=== PATIENT | male | born 1935 | race Caucasian/White ===

== ENCOUNTER 2017-06-04 19:58 | Inpatient (IN) ==
--- NOTE | 2017-06-04 20:56 | Emergency Department Note ---
Disposition Clinical Impression: Rhabdomyolysis Disposition: Admitted As Inpatient Condition: Fair Time of Disposition: 22:30 Fall HPI - General Chief Complaint: ED Fall Stated Complaint: fall Time Seen by Provider: 06/04/17 20:45 Source: patient Nursing Notes Reviewed: Yes Vital Signs Reviewed: Yes - History of Present Illness HPI Narrative: Mr. Coombs was found on the floor of his house by his son yahaira. Some unknown how long he was there Mr. Coombs seems to think it was several days but his son deduced that it was probably about 7 hours. Mr. Coombs fell back and hit the back of his head. He does have some neck pain it is only slightly worse than usual. He did have a C2 fracture in the past. He also has an abrasion on his shoulder. He does not seem to have full recollection of all events but does not seem to think that he lost consciousness. He denies any chest pain palpitations abdominal pain currently or prior to the fall. No fever no chills no dizziness no lightheadedness. He has been eating normally prior to the fall lives at home alone. He tells me that he is a . Past medical history November he had a aortic valve replacement at [facility] in [place] and has been doing well since then. Before that he had issues with congestive heart failure. He is currently on Eliquis for anticoagulation per his daughter's report. Pt Subjective Complaint: fall - Related Data Home Medications Medication Instructions Recorded Confirmed Atorvastatin [Lipitor] 20 mg PO HS 09/16/15 06/05/17 Ferrous Sulfate [Iron] 325 mg PO DAILY 09/16/15 06/05/17 Ranolazine [Ranexa] 500 mg PO BID 09/16/15 06/05/17 Apixaban [Eliquis] 5 mg PO BID 06/05/17 06/05/17 Carvedilol [Coreg] 3.125 mg PO ONCE 06/05/17 06/05/17 Furosemide [Lasix] 40 mg PO DAILY 06/05/17 06/05/17 Lisinopril [Zestril] 3.125 mg PO BID 06/05/17 06/05/17 Mirtazapine [Remeron] 15 mg PO HS 06/05/17 06/05/17 Previous Rx's Medication Instructions Recorded Acetaminophen [Tylenol] 975 mg PO Q8HR PRN #0 tablet 10/11/15 Allergies Allergy/AdvReac Type Severity Reaction Status Date / Time Penicillins Allergy See Verified 09/23/15 13:23 Comments hydrocodone AdvReac Nausea Verified 09/23/15 22:04 Eyes: Denies: vision change ENT ED: Denies: throat pain Cardiovascular: Denies: chest pain Gastrointestinal: Denies: abdominal pain, nausea, vomiting Musculoskeletal: Reports: neck pain. Denies: arthralgia Integumentary: Reports: abrasion Neurological: Denies: headache Hematological/Lymphatic: Denies: easy bleeding, easy bruising Fall PMH - Past Medical History Medical history: Reports: coronary artery disease, hyperlipidemia, hypertension , valvular heart disease, other Surgical history: Reports: herniorrhaphy, hip replacement (Left hip replacement 1994, revised 1999), pacemaker/AICD Psychiatric history: Reports: no psych history - Social History Smoking Status: Former smoker Alcohol use: Reports: none Drug use: Reports: none Physical Exam - General Limitations: age General appearance: alert, in no apparent distress - Head Head exam: other (Occiput soft tissue swelling in an area approximately 2 x 2 centimeters mild pain to palpation no crepitus no step-off. Skin is intact.) - Eye Eye exam: Present: normal appearance, PERRL, EOMI. Absent: periorbital swelling , periorbital tenderness - ENT ENT exam: normal oropharynx, TM's normal bilaterally, other (Negative Bailey sign negative raccoon eyes) - Neck Neck exam: Present: full ROM, tenderness (Mild pain to palpation cervical vertebrae no crepitus no step off no point tenderness.) - Chest Chest inspection: Present: other (Intact pacer device left upper chest. No pain to palpation) - Respiratory Respiratory exam: Present: normal lung sounds bilaterally. Absent: respiratory distress, wheezes, stridor - Cardiovascular Cardiovascular exam: Present: normal rhythm, tachycardia, normal heart sounds. Absent: systolic murmur, diastolic murmur - Abdominal Exam Abdominal exam: Present: soft, Non-Tender, other (No abdominal ecchymoses) - Back Exam Back exam: Present: normal inspection, other (No flank ecchymoses) - Neurological Exam Neurological exam: Present: alert, oriented X3, CN II-XII intact. Absent: motor sensory deficit - Psychiatric Psychiatric exam: Present: normal affect, normal mood - Skin Skin exam: Present: other (HemoStatic abrasion posterior left shoulder area approximately 4 cm) Course Vital Signs Temperature 97.8 F 06/04/17 20:21 Pulse Rate 110 06/04/17 20:21 Respiratory Rate 20 06/04/17 20:21 Blood Pressure 110/80 06/04/17 20:21 O2 Sat by Pulse Oximetry 94 06/04/17 20:21 Temperature 97.8 F 06/04/17 20:21 Pulse Rate 124 06/05/17 01:43 Respiratory Rate 20 06/05/17 01:43 Blood Pressure 117/71 06/05/17 01:43 O2 Sat by Pulse Oximetry 93 06/05/17 01:43 Oxygen Delivery Oxygen Delivery Room Air Fall - MDM Narrative Medical decision making narrative: Status post fall. There does not appear to be any serious neurologic or orthopedic sequela from this event. Per his daughter he does seem to be somewhat more confused. He probably has a concussion. Rhabdomyolysis. Probably from laying for a prolonged period of time. We will aggressively hydrate him keeping in mind his history of congestive heart failure. Lungs are currently clear and remained so when his second liter finished. We will begin a third as his urine is still quite dark. Tachycardia. Possibly secondary dehydration from prolonged immobilization or rebound for missing his dose of beta jorge today. We will doses Corag and observe this as we hydrate him. Leukocytosis. No obvious focus of fever. Chest and urine not indicative of infectious process. Blood culture pending. I spoke with Mr. Cortes's family doctor who admits here to [facility]. I presented the case. He accepted admission. Mr. Cortes is awake alert in no visible distress respiratory or otherwise just prior to transfer to the floor. - Medical Records Medical records reviewed: Yes I reviewed the patient's medical records. - Lab Data Lab results reviewed: Yes I reviewed the patient's lab results. Result diagrams: 06/04/17 21:15 06/04/17 21:15 Lab Results 06/04/17 06/04/17 06/04/17 Range/Units 21:15 21:15 21:15 WBC 19.5 H (4.3-11.1) K/mcL RBC 4.53 (4.19-5.50) M/mcL Hgb 15.0 (12.9-16.9) g/dL Hct 45.0 (37.5-50.1) % MCV 99.3 (83.0-100.0) fL MCH 33.1 (28.0-33.3) pg MCHC 33.3 (31.6-35.5) g/dL RDW 14.3 (11.5-14.5) % Plt Count 169 (140-400) K/mcL MPV 12.0 (9.4-12.4) fL Immature Gran % 0.6 (0-4) % Seg Neutrophils % 87.6 % Lymphocytes % 5.5 % Monocytes % 6.2 % Eosinophils % 0.0 % Basophils % 0.1 % Neutrophils # 17.1 H (1.6-8.9) K/mcL Lymphocytes # 1.1 (0.6-4.6) K/mcL Monocytes # 1.2 (0.0-1.3) K/mcL Eosinophils # 0.0 (0.0-0.6) K/mcL Basophils # 0.0 (0.0-0.2) K/mcL PT 15.6 H (9.4-12.1) Seconds INR 1.4 APTT 36.2 H (26.0-36.0) Seconds Sodium 135 L (136-145) mEq/L Potassium 5.6 H (3.5-5.1) mEq/L Chloride 99 (98-107) mEq/L Carbon Dioxide 26 (23-29) mEq/L BUN 42 H (8-23) mg/dL Creatinine 1.68 H (0.70-1.30) mg/dL Est GFR ( Amer) 48 L (> 60) Est GFR (Non-Af Amer) 39 L (> 60) BUN/Creatinine Ratio 25 (6-26) Glucose 178 H (70-105) mg/dL Calculated Osmolality 295 (280-300) Lactic Acid (0.5-2.2) mmol/L Calcium 9.7 (8.6-10.3) mg/dL Total Bilirubin 0.9 (0.3-1.0) mg/dL AST 103 H (13-39) Units/L ALT 36 (7-52) Units/L Alkaline Phosphatase 102 (34-104) Units/L Creatine Kinase 4856 H (30-223) Units/L Serum Total Protein 7.2 (6.4-8.9) g/dL Albumin 3.8 (3.5-5.7) g/dL Globulin 3.4 (2.4-3.5) g/dL Albumin/Globulin Ratio 1.1 (1.1-2.2) Urine Color (Yellow) Urine Clarity (Clear) Urine pH (5.0-8.0) pH Units Ur Specific [place] (1.010-1.025) Urine Protein (Neg-Trace) mg/dL Urine Glucose (UA) (Normal) mg/dL Urine Ketones (Negative) mg/dL Urine Blood (Negative) Urine Nitrite (Negative) Urine Bilirubin (Negative) Urine Urobilinogen (Normal) mg/dL Ur Leukocyte Esterase (Negative) Urine Microscopic RBC (0-3) per hpf Ur Culture Indicated? (NO) 06/04/17 06/05/17 Range/Units 21:45 00:00 WBC (4.3-11.1) K/mcL RBC (4.19-5.50) M/mcL Hgb (12.9-16.9) g/dL Hct (37.5-50.1) % MCV (83.0-100.0) fL MCH (28.0-33.3) pg MCHC (31.6-35.5) g/dL RDW (11.5-14.5) % Plt Count (140-400) K/mcL MPV (9.4-12.4) fL Immature Gran % (0-4) % Seg Neutrophils % % Lymphocytes % % Monocytes % % Eosinophils % % Basophils % % Neutrophils # (1.6-8.9) K/mcL Lymphocytes # (0.6-4.6) K/mcL Monocytes # (0.0-1.3) K/mcL Eosinophils # (0.0-0.6) K/mcL Basophils # (0.0-0.2) K/mcL PT (9.4-12.1) Seconds INR APTT (26.0-36.0) Seconds Sodium (136-145) mEq/L Potassium (3.5-5.1) mEq/L Chloride (98-107) mEq/L Carbon Dioxide (23-29) mEq/L BUN (8-23) mg/dL Creatinine (0.70-1.30) mg/dL Est GFR ( Amer) (> 60) Est GFR (Non-Af Amer) (> 60) BUN/Creatinine Ratio (6-26) Glucose (70-105) mg/dL Calculated Osmolality (280-300) Lactic Acid 3.6 H (0.5-2.2) mmol/L Calcium (8.6-10.3) mg/dL Total Bilirubin (0.3-1.0) mg/dL AST (13-39) Units/L ALT (7-52) Units/L Alkaline Phosphatase (34-104) Units/L Creatine Kinase (30-223) Units/L Serum Total Protein (6.4-8.9) g/dL Albumin (3.5-5.7) g/dL Globulin (2.4-3.5) g/dL Albumin/Globulin Ratio (1.1-2.2) Urine Color Dark Yellow (Yellow) Urine Clarity Slightly Cloudy A (Clear) Urine pH 5.0 (5.0-8.0) pH Units Ur Specific [place] 1.025 (1.010-1.025) Urine Protein 100 H (Neg-Trace) mg/dL Urine Glucose (UA) Normal (Normal) mg/dL Urine Ketones Trace H (Negative) mg/dL Urine Blood Small H (Negative) Urine Nitrite Negative (Negative) Urine Bilirubin Small H (Negative) Urine Urobilinogen Normal (Normal) mg/dL Ur Leukocyte Esterase Negative (Negative) Urine Microscopic RBC 3-5 H (0-3) per hpf Ur Culture Indicated? NO (NO) - Radiology Data Radiology results reviewed: Yes I reviewed the patient's radiology results. - EKG Data EKG attestation: Yes I reviewed and interpreted this EKG. EKG results narrative: EKG as interpreted by me ventricular pacer 122 bpm. Left axis deviation. T wave inversion on aVL. S wave in V2 of increased amplitude but criteria for LVH is not strictly met. No significant change from December 2016.
[2017-06-04 21:21] LABS: Basophils % 0.1 %; Immature Granulocytes % 0.6 % (0-4); Lymphocytes # 1.1 K/mcL (0.6-4.6); Lymphocytes % 5.5 %; Mean Corpuscular HGB Conc 33.3 g/dL (31.6-35.5); Mean Corpuscular Hemoglobin 33.1 pg (28.0-33.3); Mean Corpuscular Volume 99.3 fL (83.0-100.0); Monocytes # 1.2 K/mcL (0.0-1.3); Monocytes % 6.2 %; Neutrophils # 17.1 K/mcL (1.6-8.9); Platelet Count 169 K/mcL (140-400); Red Blood Count 4.53 M/mcL (4.19-5.50); Red Cell Distribution Width 14.3 % (11.5-14.5); Segmented Neutrophils % 87.6 %
[2017-06-04 21:24] LABS: INR 1.4; Prothrombin Time 15.6 Seconds (9.4-12.1)
[2017-06-04 21:26] LABS: Activated Partial Thrombo Time 36.2 Seconds (26.0-36.0)
[2017-06-04 22:14] LABS: Albumin 3.8 g/dL (3.5-5.7); Albumin/Globulin Ratio 1.1 (1.1-2.2); Bilirubin,Total 0.9 mg/dL (0.3-1.0); Calcium 9.7 mg/dL (8.6-10.3); Globulin 3.4 g/dL (2.4-3.5); Potassium 5.6 mEq/L (3.5-5.1); Total Protein 7.2 g/dL (6.4-8.9)
[2017-06-04] MEDS ORDERED: 0.9 % Sodium Chloride 1,000 ML IVC ONE (22:19)
[2017-06-05 00:11] LABS: Bilirubin,Urine Small (Negative); Blood,Urine Small (Negative); Clarity,Urine Slightly Cloudy (Clear); Glucose,Urine (UA) Normal (Normal); Ketones,Urine Trace mg/dL (Negative); Leukocyte Esterase,Urine Negative (Negative); Nitrite,Urine Negative (Negative); Protein,Urine 100 mg/dL (Neg-Trace); Specific Gravity,Urine 1.025 (1.010-1.025); Urobilinogen,Urine Normal (Normal)
[2017-06-05 00:17] LABS: Color,Urine Dark Yellow (Yellow)
[2017-06-05] MEDS ORDERED: 0.9 % Sodium Chloride 1,000 ML IVC ONE ×3 (00:49→02:04)
[2017-06-05] MEDS ORDERED: Naloxone 0.4 MG/ML INJ IVP PRN (01:59)
[2017-06-05] MEDS ORDERED: 0.9 % Sodium Chloride 1,000 ML IVC SCH (02:00)
[2017-06-05] MEDS: 0.9 % Sodium Chloride 1,000 ML IVC SCH ×3 (04:02→23:57)
[2017-06-05 07:11] LABS: Hematocrit 33.9 % (37.5-50.1); Immature Granulocytes % 0.5 % (0-4); Lymphocytes # 1.1 K/mcL (0.6-4.6); Lymphocytes % 10.6 %; Mean Corpuscular HGB Conc 33.6 g/dL (31.6-35.5); Mean Corpuscular Hemoglobin 33.2 pg (28.0-33.3); Mean Corpuscular Volume 98.8 fL (83.0-100.0); Mean Platelet Volume 11.3 fL (9.4-12.4); Monocytes # 0.9 K/mcL (0.0-1.3); Monocytes % 9.2 %; Neutrophils # 8.2 K/mcL (1.6-8.9); Platelet Count 125 K/mcL (140-400); Red Blood Count 3.43 M/mcL (4.19-5.50); Red Cell Distribution Width 14.4 % (11.5-14.5); Segmented Neutrophils % 79.7 %
[2017-06-05 07:12] LABS: Hemoglobin 11.4 g/dL (12.9-16.9)
[2017-06-05 08:29] LABS: Calcium 8.4 mg/dL (8.6-10.3); Magnesium 2.2 mg/dL (1.6-2.6)
[2017-06-05] MEDS: Apixaban 5 MG TABLET PO SCH ×2 (09:03→22:39)
[2017-06-05] MEDS: Ranolazine 500 MG TAB.ER.12H PO SCH ×2 (09:03→22:39)
--- NOTE | 2017-06-05 09:39 | Internal Med History&Physical ---
Date of Encounter: 06/06/17 Time of Encounter: 09:38 Assessment and Plan (1) Rhabdomyolysis Current visit: Yes Status: Acute Patient has rhabdomyolysis with elevated CPK from having been on the floor after a fall for 7 hours or more. His creatinine was elevated, he has been placed on IV fluids and his creatinine is improved now. We still need to continue the IV fluids gently because of his prior history of aortic stenosis/ TAVR and cardiomyopathy. We cannot flood him with too much at one time. Continue hydrating gently and try to avoid congestive heart failure at the same time. We will have follow-up CPK and creatinine. I anticipate he will need to be here 3-4 days because of his multiple problems Qualifiers: Rhabdomyolysis type: traumatic Encounter type: initial encounter Qualified Code(s): T79.6XXA - Traumatic ischemia of muscle, initial encounter (2) Acute kidney injury Current visit: Yes Status: Acute Acute kidney injury with elevated creatinine 1.6. Improved after hydration. We will need to continue following because of the rhabdomyolysis. Continue hydration gently, avoiding congestive heart failure. (3) Concussion Current visit: Yes Status: Acute It appears that he may have a concussion. Even though he knows the day, date and year and his surroundings, he thought he fell at the office and was there for 7 days before being found by his son Jose. Actually was more likely up to 7 hours or so at home. Then he told the story that he was making a sandwich when he fell backwards. His CT scan was negative for hemorrhage. He does have some mild cognitive decline because of age, previous falling episodes and concussions and we will continue to monitor. Qualifiers: Encounter type: initial encounter Loss of consciousness presence/duration: without LOC Qualified Code(s): S06.0X0A - Concussion without loss of consciousness, initial encounter (4) Hx of CABG Current visit: No Status: Chronic History of previous CABG and aortic stenosis. He has a tendency for CHF. We need to hydrate him slowly. Currently no signs of CHF. We will add back his ARB that was not started in the ER. Currently not requiring Lasix (5) Frequent falls Current visit: Yes Status: Acute She has a history of frequent falling, this time he was on the floor for many hours. No obvious chest pain, dyspnea, neurological event leading to this. Likely generalized lower extremity weakness, loss of bowels particular when he steps backwards, etc. He uses a Rollator at home. Blood cultures were obtained to help rule out occult infection. Urine did not look infected. Obvious source of infection leading to weakness. He has had general decline and is failed maintaining good functional capacity despite home physical therapy. (6) Abrasion hip/leg Current visit: Yes Status: Acute Qualifiers: Encounter type: initial encounter Laterality: left Qualified Code(s): S80.812A - Abrasion, left lower leg, initial encounter (7) Status post transcatheter aortic valve replacement Current visit: Yes Status: Acute (8) Pacemaker Current visit: Yes Status: Acute Internal Medicine - H&P: HPI Chief complaint: I fell down when I stepped backwards and could not get back up Admitted From: Emergency Dept Plans for Post Hospital Care: Home History of present illness: Mr. Cortes is a 81 year old male with known history of CAD and CABG 2004, pacemaker for third-degree heart block, her carotid artery disease, s/p TAVR, and prior history of falling episode with multiple fractures was found at home on the floor. His son found him and reportedly patient could have been there for 7 hours or more. Patient was confused and thought he had been at the office and was down for 7 days. When patient was reoriented he then remembered that he had been in the kitchen making breakfast and stepped backwards and fell down and could not get up. Later information from daughter gives the possibility the patient may been on the floor for about a day and a half or more. In any case, he was unhelpful to get off the floor. He denied any syncope prior to falling, chest pains, dyspnea, unilateral focal deficit that was new. As seen in the hospital he denies a cardiac respiratory symptoms. Complains of left shoulder pain, thoracic spine pain, and generalized weakness. Patient states he has been compliant with his medications, but on house calls I have found inconsistencies with his medication regimens. He has had some other falls at home that did not require visit to the emergency room. He denies any signs of a broken bone, he does have an abrasion in the left lateral thigh area. He really cannot offer much more history than that. He is somewhat inconsistent and confused with details and historical information. Past Med Surg Social Fam HX - Past Medical History Medical history: atrial fibrillation (In past has had atrial fibrillation, now has ventricular pacemaker.), cardiomyopathy ( History of ischemic cardiomyopathy.), CHF (Remote history of CHF), coronary artery disease, hyperlipidemia, hypertension, valvular heart disease (Status post TAVR), other ( History of multiple fractures including left patella, right femur, left clavicle , C2, pelvic fractures) Psychiatric history: no psych history - Past Surgical History Surgical History: coronary bypass (CABG) (CABG 5 vessel 2004), herniorrhaphy ( Right inguinal hernia Dr. 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) Current living situation: Home - Independent Activity Level: Uses cane/walker Recent Out of Country Travel Within the Last 8 Weeks: No Exposure or Possible Exposure to Illness During Travel: No - Family History Mother Living Status: Hx Family Respiratory Disorders: Yes (Tuberculosis) Father Living Status: Hx Family Neuromuscular Disorders: Yes (CVA) Internal Medicine - H&P: Meds Atorvastatin [Lipitor] 20 mg PO HS 09/16/15 [History] Ferrous Sulfate [Iron] 325 mg PO DAILY 09/16/15 [History] Ranolazine [Ranexa] 500 mg PO BID 09/16/15 [History] Acetaminophen [Tylenol] 975 mg PO Q8HR PRN #0 tablet 10/11/15 [Rx] Apixaban [Eliquis] 5 mg PO BID 06/05/17 [History] Carvedilol [Coreg] 3.125 mg PO ONCE 06/05/17 [History] Furosemide [Lasix] 40 mg PO DAILY 06/05/17 [History] Mirtazapine [Remeron] 15 mg PO HS 06/05/17 [History] Magnesium Oxide [Magnesium] 400 mg PO DAILY 06/06/17 [History] Olmesartan Medoxomil [Olmesartan Medoxomil] 5 mg PO DAILY 06/06/17 [History] 3 Allergy/AdvReac Type Severity Reaction Status Date / Time Penicillins Allergy See Verified 09/23/15 13:23 Comments hydrocodone AdvReac Nausea Verified 09/23/15 22:04 - Constitutional Constitutional: falls, weakness, no fever(s), no night sweats - EENT Eyes: no change in vision, no loss of vision Ears: no ear pain Nose, mouth and throat: no epistaxis, no sinus pain, no sore throat - Cardiovascular Cardiovascular ROS IM: no chest pain, no claudication, no diaphoresis, no dyspnea, no dyspnea on exertion, no irregular heart rhythm, no lightheadedness, no palpitations, no syncope - Respiratory Respiratory: no cough, no dyspnea, no wheezing - Gastrointestinal Gastrointestinal: no abdominal pain, no coffee ground emesis, no constipation, no diarrhea, no hematemesis, no hematochezia, no melena, no vomiting - Genitourinary Genitourinary ROS male: no difficulty urinating, no dysuria, no hematuria, no urinary incontinence (Though staff reports he is incontinent at times) - Musculoskeletal Musculoskeletal ROS IM: as per HPI, back pain (Mid to lower thoracic spine tenderness.), muscle weakness (Complains of weakness particularly in his lower extremities.), no neck pain, no tingling - Integumentary Integumentary IM: as per HPI (Abrasion to left lateral thigh), no jaundice - Neurological Neurological ROS: disequilibrium (He uses a Rollator.), no confusion (Though staff reports he does get confused easily.), no focal weakness, no headache(s), no loss of vision, no paresthesias, no radicular pain, no tingling, no tremor(s) - Psychiatric Psychiatric: no auditory hallucinations, no behavioral changes, no confusion ( The staff thinks he is confused at times.), no hallucinations, no suicidal ideation, no visual hallucinations - Endocrine Endocrine IM: no polyphagia, no polyuria - Hematologic/Lymphatic Hematologic/Lymphatic: no lymphadenopathy - Constitutional Vitals: Temp Pulse Resp BP Pulse Ox 98.3 F 107 16 117/69 94 06/05/17 07:35 06/05/17 07:35 06/05/17 02:52 06/05/17 07:35 06/05/17 07:35 General appearance: Present: A&O X 3 (He knew the day, date, year and location. He thought that he fell though in the office instead of his house and that he was there for 7 days not 7 hours), pleasant, no acute distress. Absent: answers questions appropriately - Head Head exam: Present: atraumatic (No bruising or Bailey's sign), normal inspection - Eye Eye exam: Present: EOMI, PERRL. Absent: scleral icterus - ENT ENT exam: Present: TM's normal bilaterally - Neck Neck exam general surgery: Absent: full ROM (Appropriate range of motion for his age and previous fracture. Appears to be at baseline.), lymphadenopathy, tenderness Additional comments: No JVD - Expanded Neck Exam Neck exam: Absent: thyroid mass - Respiratory Respiratory exam: Present: CTAB. Absent: rales, rhonchi, wheezes - Cardiovascular Cardiovascular exam: Present: RRR, +S1, +S2, systolic murmur (2 to 3/6 systolic murmur heard best along the left sternal border.) - GI/Abdominal GI/Abdominal exam: Present: soft, no peritoneal signs. Absent: guarding, hepatomegaly, rebound, tenderness - Extremities Exam Extremities exam: Absent: calf tenderness, joint swelling, pedal edema Additional comments: Has an abrasion the left lateral thigh which is covered with a dressing. It measures 8-10 cm or so in diameter. Superficial without secondary infection. Has bruising on the right forearm uncomplicated. He has chronic abnormal deformity to the right distal clavicle. Slight decreased range of motion of left knee compare the right with previous patellar fracture. Cannot dorsiflex the left foot. No obvious long bone deformities noted. Moves all extremities appropriately well as tested in bed considering his condition. - Back Exam Additional comments: Patient has kyphosis as well as protrusion of some lower thoracic vertebrae. He has healed decubitus and skin discoloration along his thoracic spine without any open lesions. Mildly tender on palpation at approximately the eighth to 10th spinal processes. Does not appear to be localized to specific vertebrae on percussion. - Neurological Exam Neurological exam: Present: alert, CN II-XII intact, strengths equal and symetr throughout. Absent: altered, facial droop, speech deficit Additional comments: He is talkative and appears to be oriented. However, he thought that he fell in the office and was there for 7 days, not the house and having been there on the floor for about 7 hours. He seems fairly clear to recent and historical events on cursory social conversation. Did not do a full Mini-Mental status examination. He knew the date, day, month and year. He does not know his medications very well at all, but he never has. He is unclear to the events of his falling episode and timeframe. - Skin Skin exam: Present: abrasion (Left lateral thigh measuring 8-10 cm. Very superficial and covered with sterile dressing.) Internal Med - H&P Results - Labs CBC & Chem 7: 06/06/17 15:55 06/06/17 15:55 Labs: Short CBC 06/05/17 Range/Units 06:45 WBC 10.2 (4.3-11.1) K/mcL Hgb 11.4 L D (12.9-16.9) g/dL Hct 33.9 L (37.5-50.1) % Plt Count 125 L (140-400) K/mcL Neutrophils # 8.2 (1.6-8.9) K/mcL BMP 06/05/17 06:45 Sodium 140 Potassium 4.0 D Chloride 107 Carbon Dioxide 26 BUN 38 H Creatinine 1.46 H Glucose 108 H Calcium 8.4 L Labs have been reviewed. - Impressions ITS Impressions Chest X-Ray 06/05/17 02:05 IMPRESSION: No acute disease. D/ / Rolly Pierce MD / Rolly Pierce MD Interpreting Provider: Rolly Pierce MD - VTE Reasons for not Prescribing Prophylaxis: Not indicated-Anticoagulated or INR therapeutic
--- NOTE | 2017-06-05 20:12 | Electrocardiograph Report ---
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
[2017-06-05] MEDS: Mirtazapine 15 MG TABLET PO SCH (22:39)
[2017-06-06 05:47] LABS: Eosinophils # 0.1 K/mcL (0.0-0.6); Eosinophils % 1.6 %; Hematocrit 26.6 % (37.5-50.1); Immature Granulocytes % 0.5 % (0-4); Lymphocytes # 1.5 K/mcL (0.6-4.6); Lymphocytes % 24.7 %; Mean Corpuscular HGB Conc 32.7 g/dL (31.6-35.5); Mean Corpuscular Volume 100.8 fL (83.0-100.0); Mean Platelet Volume 11.9 fL (9.4-12.4); Monocytes # 0.7 K/mcL (0.0-1.3); Monocytes % 10.9 %; Neutrophils # 3.8 K/mcL (1.6-8.9); Red Blood Count 2.64 M/mcL (4.19-5.50); Red Cell Distribution Width 14.6 % (11.5-14.5); Segmented Neutrophils % 62.3 %
[2017-06-06 05:51] LABS: Platelet Count 86 K/mcL (140-400)
[2017-06-06 05:52] LABS: Hemoglobin 8.7 g/dL (12.9-16.9)
[2017-06-06 07:57] LABS: BUN/Creatinine Ratio 31 (6-26); Blood Urea Nitrogen 30 mg/dL (8-23); Carbon Dioxide 21 mEq/L (23-29); Chloride 116 mEq/L (98-107); Glucose 82 mg/dL (70-105); Osmolality,Calculated 299 (280-300); Potassium 2.5 mEq/L (3.5-5.1); Sodium 142 mEq/L (136-145); eGFR For African Americans > 60 (> 60); eGFR For Non-African Americans > 60 (> 60)
[2017-06-06] MEDS: 0.9 % Sodium Chloride w KCl 20 MEQ/1,000 ML MLS IVC SCH ×2 (10:19→21:24)
[2017-06-06] MEDS: Apixaban 5 MG TABLET PO SCH (10:21)
[2017-06-06] MEDS: Ranolazine 500 MG TAB.ER.12H PO SCH ×2 (10:21→19:26)
--- NOTE | 2017-06-06 14:05 | Internal Med Progress Note ---
Date of Encounter: 06/06/17 Time of Encounter: 13:59 - Assessment and plan (1) Rhabdomyolysis Current Visit: Yes Status: Acute Assessment and plan: Continued IV hydration for rhabdomyolysis. Kidney function is improved. CPK improved. Continue current plan. Qualifiers: Rhabdomyolysis type: traumatic Encounter type: initial encounter Qualified Code(s): T79.6XXA - Traumatic ischemia of muscle, initial encounter (2) Acute kidney injury Current Visit: Yes Status: Acute Assessment and plan: Acute kidney injury likely from prerenal as well as rhabdomyolysis improved. Continue IV hydration. (3) Concussion Current Visit: Yes Status: Acute Assessment and plan: His mentation is good, pleasant, ate well today. I did not do a full Mini- Mental status exam though. He acts at his baseline. 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 (5) Frequent falls Current Visit: Yes Status: Acute Assessment and plan: He is very weak and lower extremities. He takes 2 or 3 people to get him into a chair or bedside commode. We are having PT and OT evaluate him. (6) Abrasion hip/leg Current Visit: Yes Status: Acute Qualifiers: Encounter type: initial encounter Laterality: left Qualified Code(s): S80.812A - Abrasion, left lower leg, initial encounter (7) Status post transcatheter aortic valve replacement Current Visit: Yes Status: Acute Assessment and plan: No angina or CHF clinically or symptomatically (8) Pacemaker Current Visit: Yes Status: Acute Assessment and plan: Monitor is showing a regular ventricular paced rhythm. Pulse is now in the 70s as it is down from the 100s from yesterday. (9) Anemia Current Visit: Yes Status: Acute Assessment and plan: His blood count dropped his hemoglobin from the typical 10-11 range down to 8.7. No obvious bleeding source. We will hold his Eliquis. Guaiac his stool. Continue the iron. Qualifiers: Anemia type: unspecified type Qualified Code(s): D64.9 - Anemia, unspecified (10) Hypocalcemia Current Visit: Yes Status: Acute Assessment and plan: Hypocalcemia. Not sure the etiology. Certainly poor protein status. We will recheck before intervention. (11) Thrombocytopenia Current Visit: Yes Status: Acute Assessment and plan: Thrombocytopenia down to 89,000. No obvious bleeding source. Doubt septicemia or DIC. We will recheck before doing intervention. (12) Hypokalemia Current Visit: Yes Status: Acute Assessment and plan: Hypokalemia. We have initiated potassium bolus IV, change IV to normal saline with potassium and will recheck later today. Typically at home he takes potassium with his Lasix. - Subjective Interval history: Patient states that he thinks that he is doing much better. He ate well this morning. Denies a cardiac respiratory symptoms. He states he is weak in his lower extremities and agrees to OT and PT evaluation and treatment. He says left shoulder is a bit sore from where he had fallen. Otherwise no new symptoms or problems today. - Constitutional Vitals: Temp Pulse Resp BP Pulse Ox 97.9 F 97 16 100/62 96 06/06/17 11:38 06/06/17 11:38 06/06/17 11:38 06/06/17 11:38 06/06/17 11:38 General appearance: Present: A&O X 3, no acute distress - Respiratory Respiratory exam: Present: CTAB - Cardiovascular Cardiovascular exam: Present: RRR, +S1, +S2, systolic murmur (2/6 systolic murmur robyn LLSB) - GI/Abdominal GI/Abdominal exam: Present: soft, no peritoneal signs. Absent: tenderness - Extremities Exam Extremities exam: Present: normal capillary refill. Absent: calf tenderness, pedal edema - Back Exam Additional comments: mild tenderness lower thoracic spine, better today. No dropoff or deformity at that location. has protuberance of thoracic spine froim prior coimpression fractures in past Internal Medicine: Result - Labs CBC & Chem 7: 06/06/17 15:55 06/06/17 15:55 Labs: Short CBC 06/06/17 Range/Units 05:30 WBC 6.1 (4.3-11.1) K/mcL Hgb 8.7 L D (12.9-16.9) g/dL Hct 26.6 L (37.5-50.1) % Plt Count 86 L (140-400) K/mcL Neutrophils # 3.8 (1.6-8.9) K/mcL BMP 06/06/17 05:30 Sodium 142 Potassium 2.5 L* D Chloride 116 H Carbon Dioxide 21 L BUN 30 H Creatinine 0.97 Glucose 82 Calcium 6.0 L* Significant drop in his hemoglobin to 8.7. Platelets low at 86,000. Potassium 2.5 and replacement is oriented been initiated. Calcium dropped to 6.0. Kidney function is improved after hydration. BNP much improved. - ABG Interpretation ABG results: PT/INR, D-dimer PT 15.6 Seconds (9.4-12.1) H 06/04/17 21:15 - VTE Reasons for not Prescribing Prophylaxis: Not indicated-Anticoagulated or INR therapeutic Consult Discharge Plan - Plan Referrals: Denzel Mcgarry MD [Primary Care Provider] -
[2017-06-06 16:01] LABS: Eosinophils # 0.1 K/mcL (0.0-0.6); Eosinophils % 2.2 %; Hematocrit 31.5 % (37.5-50.1); Hemoglobin 10.3 g/dL (12.9-16.9); Immature Granulocytes % 0.5 % (0-4); Lymphocytes # 1.3 K/mcL (0.6-4.6); Lymphocytes % 19.4 %; Mean Corpuscular HGB Conc 32.7 g/dL (31.6-35.5); Mean Corpuscular Hemoglobin 33.3 pg (28.0-33.3); Mean Corpuscular Volume 101.9 fL (83.0-100.0); Mean Platelet Volume 11.1 fL (9.4-12.4); Monocytes # 0.7 K/mcL (0.0-1.3); Monocytes % 11.4 %; Neutrophils # 4.3 K/mcL (1.6-8.9); Platelet Count 104 K/mcL (140-400); Red Blood Count 3.09 M/mcL (4.19-5.50); Red Cell Distribution Width 14.7 % (11.5-14.5); Segmented Neutrophils % 66.5 %
[2017-06-06] MEDS: Mirtazapine 15 MG TABLET PO SCH (19:27)
[2017-06-07 07:18] LABS: Basophils % 0.2 %; Eosinophils # 0.2 K/mcL (0.0-0.6); Eosinophils % 3.1 %; Hemoglobin 9.4 g/dL (12.9-16.9); Immature Granulocytes % 0.3 % (0-4); Lymphocytes # 1.7 K/mcL (0.6-4.6); Lymphocytes % 26.6 %; Mean Corpuscular HGB Conc 32.4 g/dL (31.6-35.5); Mean Corpuscular Hemoglobin 32.9 pg (28.0-33.3); Mean Corpuscular Volume 101.4 fL (83.0-100.0); Mean Platelet Volume 11.4 fL (9.4-12.4); Monocytes # 0.5 K/mcL (0.0-1.3); Monocytes % 8.5 %; Neutrophils # 3.8 K/mcL (1.6-8.9); Platelet Count 108 K/mcL (140-400); Red Blood Count 2.86 M/mcL (4.19-5.50); Red Cell Distribution Width 14.6 % (11.5-14.5); Segmented Neutrophils % 61.3 %
--- NOTE | 2017-06-07 07:18 | Internal Med Progress Note ---
Date of Encounter: 06/07/17 Time of Encounter: 07:13 - Assessment and plan (1) Rhabdomyolysis Current Visit: Yes Status: Acute Assessment and plan: We are continuing with IV fluids for his rhabdomyolysis. Renal function has improved. I would like to see morning's labs before we taper off his IV fluids. Qualifiers: Rhabdomyolysis type: traumatic Encounter type: initial encounter Qualified Code(s): T79.6XXA - Traumatic ischemia of muscle, initial encounter (2) Acute kidney injury Current Visit: Yes Status: Acute Assessment and plan: Renal function has improved. I would like to see this morning's labs before we taper off the IV fluids. (3) Concussion Current Visit: Yes Status: Acute Assessment and plan: His mentation appears to be at its baseline, he has had some cognitive decline commensurate with his age and repeated falls and trauma. Those changes are chronic. 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 (5) Frequent falls Current Visit: Yes Status: Acute Assessment and plan: I would like to have him be evaluated for a swing bed after he is met 3 nights of hospitalization. He needs ongoing physical therapy. (6) Abrasion hip/leg Current Visit: Yes Status: Acute Assessment and plan: I did not reevaluate the abrasion today. It is covered with sterile dressing. Qualifiers: Encounter type: initial encounter Laterality: left Qualified Code(s): S80.812A - Abrasion, left lower leg, initial encounter (7) Status post transcatheter aortic valve replacement Current Visit: Yes Status: Acute Assessment and plan: No angina or CHF. Last echocardiogram reported from [place] showed his EF to be in the 35% range. His BNP was elevated the day after he had IV fluids from the ER. It dropped considerably yesterday. Today's is pending. (8) Pacemaker Current Visit: Yes Status: Acute Assessment and plan: He has had a history of third-degree heart block and now has a pacer. Monitor shows ventricular pacing. There is been no rhythms of concern and telemetry will be discontinued. (9) Anemia Current Visit: Yes Status: Acute Assessment and plan: He had a drop in hemoglobin on admission, likely from rehydration. Yesterday morning his hemoglobin dropped to the 8 range, but by 4 PM it was back up again. I really cannot explain what happened. I am holding his Eliquis though at this point. Hemoccult of stool ordered, and he has not had any stool since then. I do not think he has any brisk hemorrhage at this point and will follow. The morning hemoglobin is pending. We will consider restarting the Eliquis or aspirin. Qualifiers: Anemia type: unspecified type Qualified Code(s): D64.9 - Anemia, unspecified (10) Hypocalcemia Current Visit: Yes Status: Acute Assessment and plan: His unexplained drop in calcium improved on repeat lab work. Will follow. (11) Thrombocytopenia Current Visit: Yes Status: Acute Assessment and plan: His unexplained drop in platelet count improves. Will follow (12) Hypokalemia Current Visit: Yes Status: Acute Assessment and plan: Hypokalemia resolved with potassium bolus intravenously, changing his IV fluids to include potassium. Morning lab work pending. - Subjective Interval history: Patient states that his night was "uneventful". He denies any cardiac chest pain, palpitations, dyspnea, abdominal pain. He thinks his pains from falling or improved. Still has some left shoulder discomfort but able to move it. He was pleased to report that he was able to walk yesterday (with physical therapy , gait belt and a walker and assistance). He would like to get physical therapy so he can become independent and be able to go back home again. Nurses report that his night was uneventful. He is continent of urine, sometimes he has difficulties handling the urine although. He has not had any stool for the past day or so. - Constitutional Vitals: Temp Pulse Resp BP Pulse Ox 97.3 F L 83 16 137/67 95 06/07/17 07:02 06/07/17 07:02 06/07/17 07:02 06/07/17 07:02 06/07/17 07:02 General appearance: Present: A&O X 3, no acute distress - Respiratory Respiratory exam: Present: CTAB - Cardiovascular Cardiovascular exam: Present: RRR, +S1, +S2, systolic murmur (2 to 3/6 systolic murmur heard best at the left sternal border) - GI/Abdominal GI/Abdominal exam: Present: soft. Absent: tenderness - Extremities Exam Extremities exam: Absent: calf tenderness, mottling, pedal edema - Back Exam Additional comments: Chronic kyphosis but not tender today. - Neurological Exam Neurological exam: Present: CN II-XII intact, oriented X3 Additional comments: Continues to have left foot drop chronically. - Skin Additional comments: I did not reevaluate the abrasion in the left lateral thigh. It is covered with a sterile dressing. Internal Medicine: Result - Labs CBC & Chem 7: 06/06/17 15:55 06/06/17 15:55 Labs: Short CBC 06/06/17 Range/Units 15:55 WBC 6.5 (4.3-11.1) K/mcL Hgb 10.3 L D (12.9-16.9) g/dL Hct 31.5 L (37.5-50.1) % Plt Count 104 L (140-400) K/mcL Neutrophils # 4.3 (1.6-8.9) K/mcL BMP 06/06/17 06/06/17 06/06/17 05:30 15:55 15:55 Sodium 142 Potassium 2.5 L* D 3.6 D Chloride 116 H Carbon Dioxide 21 L BUN 30 H Creatinine 0.97 Glucose 82 Calcium 6.0 L* 8.2 L Laboratory results from this morning are pending. Surprisingly, the repeat labs yesterday at 4 PM showed improved hemoglobin, potassium, calcium, and platelets. We will adjust after we see this morning's labs. - ABG Interpretation ABG results: PT/INR, D-dimer PT 15.6 Seconds (9.4-12.1) H 06/04/17 21:15 - VTE Reasons for not Prescribing Prophylaxis: Not indicated-Anticoagulated or INR therapeutic Consult Discharge Plan - Plan Referrals: Denzel Mcgarry MD [Primary Care Provider] -
[2017-06-07 07:34] LABS: BUN/Creatinine Ratio 25 (6-26); Blood Urea Nitrogen 28 mg/dL (8-23); Calcium 8.2 mg/dL (8.6-10.3); Carbon Dioxide 25 mEq/L (23-29); Chloride 112 mEq/L (98-107); Creatine Kinase 1125 Units/L (30-223); Glucose 98 mg/dL (70-105); Osmolality,Calculated 297 (280-300); Potassium 4.3 mEq/L (3.5-5.1); Sodium 141 mEq/L (136-145); eGFR For African Americans > 60 (> 60); eGFR For Non-African Americans > 60 (> 60)
[2017-06-07] MEDS: Ranolazine 500 MG TAB.ER.12H PO SCH ×2 (08:23→22:42)
[2017-06-07] MEDS: 0.9 % Sodium Chloride w KCl 20 MEQ/1,000 ML MLS IVC SCH ×2 (12:30→13:09)
--- NOTE | 2017-06-07 19:41 | Event Note ---
Date of Encounter: 06/07/17 Time of Encounter: 19:37 I reevaluated the patient this evening. He states he had a good day. He participated in therapy until he had too much back pain. He has been eating quite well. He has been alert, conversant and his usual social personality. Examination showed clear lungs. Heart regular rate with 2 to 3/6 systolic murmur. Extremities showed trace edema. Continued left foot drop. Open decubitus in the midline spine (and the dressing had fallen off.) It measures about 2 cm in diameter. Healing dry abrasion left posterior shoulder. Left lateral thigh/hip abrasion is covered with sterile dressing. He has done remarkably well. His lab work has stabilized. At this point I think it is safe to discontinue the IV fluids for fear of tipping him into congestive heart failure. His last recorded echocardiogram ejection fraction was 35% in [place]. He is eating and drinking quite well. Renal function improved. We will plan to restart Lasix depending on his fluid status. He is off Eliquis and will initiate Lovenox for DVT prophylaxis since his platelet count is back up again. Medically he appears to be stable enough to try to advance his therapy and he is eligible for a swing bed transfer tomorrow for ongoing PT and OT.
[2017-06-07] MEDS ORDERED: Sennosides/Docusate Sodium TABLET PO PRN (19:59)
[2017-06-07] MEDS: Mirtazapine 15 MG TABLET PO SCH (22:43)
[2017-06-08 05:49] VITALS: BP 165/81
[2017-06-08] MEDS ORDERED: *HR* Enoxaparin 30 MG/0.3 ML SYRINGE SQ SCH (06:00)
[2017-06-08 06:17] LABS: BUN/Creatinine Ratio 20 (6-26); Blood Urea Nitrogen 21 mg/dL (8-23); Calcium 8.4 mg/dL (8.6-10.3); Carbon Dioxide 25 mEq/L (23-29); Chloride 111 mEq/L (98-107); Glucose 92 mg/dL (70-105); Osmolality,Calculated 291 (280-300); Potassium 4.5 mEq/L (3.5-5.1); Sodium 139 mEq/L (136-145); eGFR For African Americans > 60 (> 60); eGFR For Non-African Americans > 60 (> 60)
[2017-06-08 06:21] LABS: Basophils % 0.3 %; Eosinophils # 0.2 K/mcL (0.0-0.6); Eosinophils % 3.1 %; Hematocrit 31.2 % (37.5-50.1); Immature Granulocytes % 0.2 % (0-4); Lymphocytes # 1.9 K/mcL (0.6-4.6); Lymphocytes % 32.6 %; Mean Corpuscular HGB Conc 32.1 g/dL (31.6-35.5); Mean Corpuscular Hemoglobin 32.9 pg (28.0-33.3); Mean Corpuscular Volume 102.6 fL (83.0-100.0); Mean Platelet Volume 11.3 fL (9.4-12.4); Monocytes # 0.5 K/mcL (0.0-1.3); Monocytes % 8.7 %; Neutrophils # 3.2 K/mcL (1.6-8.9); Platelet Count 116 K/mcL (140-400); Red Blood Count 3.04 M/mcL (4.19-5.50); Red Cell Distribution Width 14.6 % (11.5-14.5); Segmented Neutrophils % 55.1 %
--- NOTE | 2017-06-08 08:19 | Internal Med Progress Note ---
Date of Encounter: 06/08/17 Time of Encounter: 08:18 - Assessment and plan (1) History of multiple trauma Current Visit: No Status: Acute Assessment and plan: Stable and ready to advance to [facility], physical and occupational therapy. (2) Aortic stenosis, severe Current Visit: No Status: Chronic Assessment and plan: Stable per history. (3) Rhabdomyolysis Current Visit: Yes Status: Acute Assessment and plan: Resolving and will resume Lasix now that his fluid status seems to be suggestive that he is adequately hydrated, may have mild CHF but not to exam. I see no evidence of congestive heart failure but he could be headed in that direction given his dyspnea on exertion. Will follow. Qualifiers: Rhabdomyolysis type: traumatic Encounter type: initial encounter Qualified Code(s): T79.6XXA - Traumatic ischemia of muscle, initial encounter - Time Spent With Patient 25 - 35 minutes - Subjective Interval history: Patient notes that he is doing: Well but has some dyspnea on exertion, this morning. He denies chest heaviness, pain, orthopnea, ankle edema, etc. He has no other intermittent breathing issues and denies wheeze, cough, etc. Patient has no complaint of chest discomfort, dyspnea, orthopnea, palpitations, nausea or vomiting, constipation or diarrhea, other changes in bowel habits, difficulty with urination, rash or itching, or other new complaints. Review of systems is otherwise unremarkable. - Constitutional Vitals: Temp Pulse Resp BP Pulse Ox 97.6 F 87 16 165/81 96 06/08/17 04:00 06/08/17 04:00 06/08/17 04:00 06/08/17 04:00 06/08/17 04:00 General appearance: Present: A&O X 3, no acute distress - Head Head exam: Present: atraumatic, normal inspection, normocephalic - Respiratory Respiratory exam: Present: CTAB. Absent: accessory muscle use, rales, wheezes - Cardiovascular Cardiovascular exam: Present: RRR, +S1, +S2, systolic murmur. Absent: gallop - GI/Abdominal GI/Abdominal exam: Present: normal bowel sounds, soft. Absent: hepatomegaly, mass, splenomegaly, tenderness - Extremities Exam Extremities exam: Present: normal capillary refill, pedal edema, warm. Absent: cyanotic Additional comments: Trace to 1+ left ankle edema but none on right.. Internal Medicine: Result - Labs CBC & Chem 7: 06/08/17 05:40 06/08/17 05:40 Labs: Short CBC 06/08/17 Range/Units 05:40 WBC 5.7 (4.3-11.1) K/mcL Hgb 10.0 L (12.9-16.9) g/dL Hct 31.2 L (37.5-50.1) % Plt Count 116 L (140-400) K/mcL Neutrophils # 3.2 (1.6-8.9) K/mcL BMP 06/08/17 05:40 Sodium 139 Potassium 4.5 Chloride 111 H Carbon Dioxide 25 BUN 21 Creatinine 1.06 Glucose 92 Calcium 8.4 L - ABG Interpretation ABG results: PT/INR, D-dimer PT 15.6 Seconds (9.4-12.1) H 06/04/17 21:15 - VTE Reasons for not Prescribing Prophylaxis: Not indicated-Anticoagulated or INR therapeutic Consult Discharge Plan - Plan Referrals: Denzel Mcgarry MD [Primary Care Provider] -
[2017-06-08] MEDS: Ranolazine 500 MG TAB.ER.12H PO SCH (08:50)
[2017-06-08] MEDS ORDERED: Sennosides/Docusate Sodium TABLET PO SCH (09:00)
[2017-06-08] MEDS ORDERED: Aspirin 81 MG TAB.CHEW PO SCH (09:00)
--- NOTE | 2017-06-08 10:34 | Discharge Summary ---
Orders not resulted at time of discharge: Pending orders 06/06/17 11:26 Occult Blood,Stool [BF] Routine Patient will be admitted to swing bed. Date of Encounter: 06/08/17 Time of Encounter: 10:32 - Discharge Diagnosis (1) History of multiple trauma Priority: Secondary Status: Acute (2) Aortic stenosis, severe Priority: Secondary Status: Chronic Comments: Status post valve replacement and has persistent murmur (3) Rhabdomyolysis Priority: Primary Status: Acute Comments: Associated acute kidney injury, improved with IV hydration. Qualifiers: Rhabdomyolysis type: traumatic Encounter type: initial encounter Qualified Code(s): T79.6XXA - Traumatic ischemia of muscle, initial encounter Hospital course: Mr. Cortes is a 81 year old male admitted after found on a fall, of uncertain duration. May actually have been down for up to 30 hours. He was found to have significant rhabdomyolysis as well has some elevation of BNP. He responded to IV hydration and is doing well. Activity has been increased and he is ready for admission for rehabilitation in a swing bed.. - Time Spent with Patient Total time spent providing and/or coordinating discharge services: - Discharge Medications Home Medications: Atorvastatin [Lipitor] 20 mg PO HS 09/16/15 [History] Ferrous Sulfate [Iron] 325 mg PO DAILY 09/16/15 [History] Ranolazine [Ranexa] 500 mg PO BID 09/16/15 [History] Acetaminophen [Tylenol] 975 mg PO Q8HR PRN #0 tablet 10/11/15 [Rx] Apixaban [Eliquis] 5 mg PO BID 06/05/17 [History] Carvedilol [Coreg] 3.125 mg PO ONCE 06/05/17 [History] Furosemide [Lasix] 40 mg PO DAILY 06/05/17 [History] Mirtazapine [Remeron] 15 mg PO HS 06/05/17 [History] Magnesium Oxide [Magnesium] 400 mg PO DAILY 06/06/17 [History] Olmesartan Medoxomil [Olmesartan Medoxomil] 5 mg PO DAILY 06/06/17 [History] Allergies/Adverse Reactions: 3 Allergy/AdvReac Type Severity Reaction Status Date / Time Penicillins Allergy See Verified 09/23/15 13:23 Comments hydrocodone AdvReac Nausea Verified 09/23/15 22:04 Date of admission: 06/05/17 10:01 Primary care physician: Denzel Mcgarry MD Consults: 06/06/17 11:26 Consult to Occupational Therapy [CONS] Routine Comment: Evaluate, develop and implement POC Reason for Consult: treat and eval. Consult to Physical Therapy [CONS] Routine Comment: Evaluate, develop and implement POC Reason for Consult: treat and eval Discharging clinician: Milton Pascual Anticipated date of discharge: 06/08/17 - Constitutional Vitals: Temp Pulse Resp BP Pulse Ox 97.6 F 75 94 165/81 96 06/08/17 04:00 06/08/17 08:00 06/08/17 08:00 06/08/17 04:00 06/08/17 04:00 General appearance: Present: A&O X 3, no acute distress Exam: See examination on progress note, this date. - Patient Status Disposition: Transfer Hospital Swing Bed Condition: Fair Overall status at discharge: patient is not back to baseline - Discharge Instructions Follow Up With: Denzel Mcgarry MD [Primary Care Provider] - - Diet and Activity Activity: as per physical therapy Diet: advance to your usual diet, low salt diet - VTE Reasons for not Prescribing Prophylaxis: Not indicated-Anticoagulated or INR therapeutic
== END 2017-06-08 10:57 | disposition other institution (70) | DRG 565 ==
LOC: INPGRE 19:58 → EMEROOGRE 19:58 → INPGRE 06-05 02:45
PROVIDERS: ADMIT Family Medicine; ATTEND Family Medicine

== ENCOUNTER 2017-06-07 11:03 | Inpatient (IN) ==
[2017-06-08] MEDS ORDERED: Acetaminophen 325 MG TABLET PO SCH (12:00)
[2017-06-08] MEDS: Furosemide 40 MG TABLET PO SCH (12:58)
[2017-06-08] MEDS: Mirtazapine 15 MG TABLET PO SCH (20:08)
[2017-06-08] MEDS: Ranolazine 500 MG TAB.ER.12H PO SCH (20:08)
[2017-06-09 05:25] LABS: Basophils % 0.2 %; Eosinophils # 0.2 K/mcL (0.0-0.6); Eosinophils % 2.6 %; Hematocrit 30.2 % (37.5-50.1); Hemoglobin 9.9 g/dL (12.9-16.9); Immature Granulocytes % 0.5 % (0-4); Lymphocytes # 1.7 K/mcL (0.6-4.6); Mean Corpuscular HGB Conc 32.8 g/dL (31.6-35.5); Mean Corpuscular Volume 100.7 fL (83.0-100.0); Mean Platelet Volume 11.2 fL (9.4-12.4); Monocytes # 0.7 K/mcL (0.0-1.3); Monocytes % 9.8 %; Neutrophils # 4.1 K/mcL (1.6-8.9); Platelet Count 120 K/mcL (140-400); Red Cell Distribution Width 14.6 % (11.5-14.5); Segmented Neutrophils % 61.9 %
[2017-06-09 05:30] LABS: INR 1.1; Prothrombin Time 12.1 Seconds (9.4-12.1)
[2017-06-09 05:44] LABS: BUN/Creatinine Ratio 20 (6-26); Blood Urea Nitrogen 22 mg/dL (8-23); Calcium 8.4 mg/dL (8.6-10.3); Carbon Dioxide 24 mEq/L (23-29); Chloride 108 mEq/L (98-107); Glucose 98 mg/dL (70-105); Osmolality,Calculated 289 (280-300); Potassium 4.4 mEq/L (3.5-5.1); Sodium 138 mEq/L (136-145); eGFR For African Americans > 60 (> 60); eGFR For Non-African Americans > 60 (> 60)
[2017-06-09] MEDS: Furosemide 40 MG TABLET PO SCH (08:45)
[2017-06-09] MEDS: *HR* Enoxaparin 40 MG/0.4 ML SYRINGE SQ SCH (08:45)
[2017-06-09] MEDS: Sennosides/Docusate Sodium TABLET PO SCH (08:46)
[2017-06-09] MEDS: Aspirin 81 MG TAB.CHEW PO SCH (08:46)
[2017-06-09] MEDS: Ranolazine 500 MG TAB.ER.12H PO SCH ×2 (08:47→22:14)
--- NOTE | 2017-06-09 17:27 | Internal Med History&Physical ---
Date of Encounter: 06/09/17 Time of Encounter: 17:26 Assessment and Plan (1) Rhabdomyolysis Current visit: No Status: Acute We will continue to follow seemingly resolving. Qualifiers: Rhabdomyolysis type: traumatic Encounter type: initial encounter Qualified Code(s): T79.6XXA - Traumatic ischemia of muscle, initial encounter (2) Thrombocytopenia Current visit: No Status: Acute Stable. (3) Hypokalemia Current visit: No Status: Acute (4) Acute kidney injury Current visit: No Status: Acute Improving, as well. (5) Aortic stenosis, severe Current visit: No Status: Chronic Status post valve replacement. (6) Frequent falls Current visit: No Status: Acute Will require safety education and assessment as part of therapies as he reconditions. (7) Concussion Current visit: No Status: Acute Clinically resolved with normal cognition and interaction. Qualifiers: Encounter type: initial encounter Loss of consciousness presence/duration: without LOC Qualified Code(s): S06.0X0A - Concussion without loss of consciousness, initial encounter (8) Pacemaker Current visit: No Status: Acute Was stable on monitor and clinically without signs of heart failure, etc. (9) Hx of CABG Current visit: No Status: Chronic Stable without cardiopulmonary symptoms. (10) DVT prophylaxis Current visit: No Status: Acute He is on enoxaparin. Internal Medicine - H&P: HPI Admitted From: Home Plans for Post Hospital Care: Home History of present illness: Mr. Cortes is a 81 year old male admitted for reconditioning after hospitalization for a fall for an extended period of time which resulted in rhabdomyolysis, acute kidney injury, and multiple contusions. This improved with IV hydration and he is now to receive OT, PT, physical medicine evaluation. Past Med Surg Social Fam HX - Past Medical History Medical history: atrial fibrillation, cardiomyopathy, CHF, coronary artery disease, hyperlipidemia, hypertension, valvular heart disease, other Psychiatric history: no psych history - Past Surgical History Surgical History: coronary bypass (CABG), herniorrhaphy, hip replacement, pacemaker/AICD, other, pacemaker - Social History Smoking Status: Former smoker Smokeless Tobacco Status: No Alcohol use: none Drug use: none - Family History Mother Living Status: Hx Family Respiratory Disorders: Yes (Tuberculosis) Father Living Status: Hx Family Neuromuscular Disorders: Yes (CVA) Internal Medicine - H&P: Meds Atorvastatin [Lipitor] 20 mg PO HS 09/16/15 [History] Ferrous Sulfate [Iron] 325 mg PO DAILY 09/16/15 [History] Ranolazine [Ranexa] 500 mg PO BID 09/16/15 [History] Acetaminophen [Tylenol] 975 mg PO Q8HR PRN #0 tablet 10/11/15 [Rx] Apixaban [Eliquis] 5 mg PO BID 06/05/17 [History] Carvedilol [Coreg] 3.125 mg PO ONCE 06/05/17 [History] Furosemide [Lasix] 40 mg PO DAILY 06/05/17 [History] Mirtazapine [Remeron] 15 mg PO HS 06/05/17 [History] Magnesium Oxide [Magnesium] 400 mg PO DAILY 06/06/17 [History] Olmesartan Medoxomil [Olmesartan Medoxomil] 5 mg PO DAILY 06/06/17 [History] 3 Allergy/AdvReac Type Severity Reaction Status Date / Time Penicillins Allergy See Verified 09/23/15 13:23 Comments hydrocodone AdvReac Nausea Verified 09/23/15 22:04 All Systems PM: A 10-system review of systems was performed and is negative for pertinent findings except as documented above in the HPI. Review of systems: See hospital H&P. - Constitutional Constitutional: as per HPI - Constitutional Vitals: Temp Pulse Resp BP Pulse Ox 97.4 F L 82 16 132/76 98 06/09/17 15:57 06/09/17 15:57 06/09/17 15:57 06/09/17 15:57 06/09/17 15:57 General appearance: Present: A&O X 3 Exam: See hospital H&P. Examinatioin: (Except as mentioned above): General: In no apparent distress. Alert and oriented 3. Nondiaphoretic. Head: Atraumatic and normocephalic. Eyes: Extraocular muscles are intact, pupils equal round and reactive to light and accommodation. Sclerae anicteric. Ears: External ears are normal to inspection and hearing is grossly normal. Nose: Patent without lesion noted. Mouth: No intraoral lesions seen. Dentition is unremarkable.Respiratory: No use of accessory muscles. Lungs are clear throughout. Normal airflow. Neck: Supple with trachea midline. There is no thyromegaly or adenopathy and carotids are 2+ without bruit heard. Cardiovascular: Regular rate and rhythm with systolic murmur grade 3/6. This is best heard at left sternal border, base. Abdomen: Bowel sounds are normal. No hepatosplenomegaly mass or tenderness appreciated. No pulsatile abdominal mass. Obese and therefore difficult to palpate deeply. Extremities: No cyanosis clubbing or edema. Skin: Warm and non-diaphoretic with no new lesions noted. Neurological: A and O 3. Cranial nerves II through XII are intact. No focal deficits and no abnormal movements or postures. Breasts, pelvic and rectal: Not examined. Internal Med - H&P Results - Labs CBC & Chem 7: 06/09/17 04:20 06/09/17 04:20 Labs: Short CBC 06/09/17 Range/Units 04:20 WBC 6.6 (4.3-11.1) K/mcL Hgb 9.9 L (12.9-16.9) g/dL Hct 30.2 L (37.5-50.1) % Plt Count 120 L (140-400) K/mcL Neutrophils # 4.1 (1.6-8.9) K/mcL BMP 06/09/17 04:20 Sodium 138 Potassium 4.4 Chloride 108 H Carbon Dioxide 24 BUN 22 Creatinine 1.11 Glucose 98 Calcium 8.4 L - VTE Documentation of Mechanical Device: Graduated compression elastic hosiery
[2017-06-09] MEDS: Mirtazapine 15 MG TABLET PO SCH (22:14)
[2017-06-10] MEDS: *HR* Enoxaparin 40 MG/0.4 ML SYRINGE SQ SCH (05:19)
--- NOTE | 2017-06-10 08:02 | Internal Med Progress Note ---
Date of Encounter: 06/10/17 Time of Encounter: 07:54 - Assessment and plan (1) Physical deconditioning Current Visit: Yes Status: Acute Assessment and plan: He continues with PT and OT and has ambulated with assistance. Sometimes he has to rest because of back pain. We continue to reevaluate whether he should stay as inpatient rehabilitation or ECF. (2) Rhabdomyolysis Current Visit: Yes Status: Acute Assessment and plan: History rhabdomyolysis with markedly improved CPK. Renal functions improved. No longer needing IV fluids. By mouth intake is good. We will continue to monitor. Qualifiers: Rhabdomyolysis type: traumatic Encounter type: initial encounter Qualified Code(s): T79.6XXA - Traumatic ischemia of muscle, initial encounter (3) History of multiple trauma Current Visit: No Status: Acute Assessment and plan: History of multiple injuries and fractures in the past, now contusion or sprain to the shoulder, multiple skin abrasions. Continue with therapies. (4) Hx of CABG Current Visit: Yes Status: Chronic Assessment and plan: No angina noted. Mild bump up in the BNP but now improved. Lasix was already restarted. (5) Anemia Current Visit: No Status: Acute Assessment and plan: Chronic mild anemia, hemoglobin actually improving. Qualifiers: Anemia type: other cause Other causes of anemia: other cause, not classified Qualified Code(s): D64.89 - Other specified anemias (6) Frequent falls Current Visit: Yes Status: Acute Assessment and plan: Needs continue PT and OT and likely ECF. (7) Abrasion hip/leg Current Visit: Yes Status: Acute Assessment and plan: Now has open area on his thoracic spine. Dressing in place. Will plan wound clinic consult. Qualifiers: Encounter type: initial encounter Laterality: left Qualified Code(s): S80.812A - Abrasion, left lower leg, initial encounter (8) Status post transcatheter aortic valve replacement Current Visit: No Status: Acute (9) Pacemaker Current Visit: No Status: Acute (10) Anemia Current Visit: No Status: Acute Qualifiers: Anemia type: unspecified type Qualified Code(s): D64.9 - Anemia, unspecified (11) Hypocalcemia Current Visit: No Status: Acute Assessment and plan: Improved. (12) Thrombocytopenia Current Visit: No Status: Acute Assessment and plan: Normalizing. (13) Left upper extremity swelling Current Visit: Yes Status: Acute Assessment and plan: Swelling of left upper extremity. We will need to rule out DVT. (14) DVT prophylaxis Current Visit: No Status: Acute - Subjective Interval history: Patient denies any chest pain or dyspnea. No abdominal pain and his bowels are moving well. He denies any lower extremity swelling. However, the nurse reported left upper extremity swelling unbeknownst to the patient. He states he does have some shoulder pain with range of motion but negative chest x-ray. He said he fell on that side. He feels like he is getting stronger, he still has a fear of falling and apprehensive - Constitutional Vitals: Temp Pulse Resp BP Pulse Ox 98.3 F 85 16 146/68 94 06/10/17 05:50 06/10/17 05:50 06/10/17 05:50 06/10/17 05:50 06/10/17 05:50 General appearance: Present: A&O X 3, answers questions appropriately - Respiratory Respiratory exam: Present: CTAB. Absent: respiratory distress - Cardiovascular Cardiovascular exam: Present: RRR, +S1, +S2, systolic murmur (2 to 3/6 systolic murmur) - GI/Abdominal GI/Abdominal exam: Present: soft. Absent: tenderness - Extremities Exam Extremities exam: Absent: calf tenderness, pedal edema, tenderness Additional comments: Left upper extremity is swollen from the shoulder down to the hand. It is not particularly tender and has good range of motion actively and passively. He does have pain in the posterior lateral shoulder with range of motion. No discoloration. - Skin Additional comments: Skin tear over the left elbow area. I did not check his back or left hip lesions. Internal Medicine: Result - Labs CBC & Chem 7: 06/11/17 05:50 06/11/17 05:50 Labs: Labs have been reviewed from yesterday. No acute changes and they are stabilized. - ABG Interpretation ABG results: PT/INR, D-dimer PT 12.1 Seconds (9.4-12.1) 06/09/17 04:20 - VTE Documentation of Mechanical Device: Graduated compression elastic hosiery Consult Discharge Plan - Plan Referrals: Denzel Mcgarry MD [Primary Care Provider] -
[2017-06-10] MEDS: Sennosides/Docusate Sodium TABLET PO SCH (11:48)
[2017-06-10] MEDS: Aspirin 81 MG TAB.CHEW PO SCH (11:48)
[2017-06-10] MEDS: Ranolazine 500 MG TAB.ER.12H PO SCH ×2 (11:48→19:48)
[2017-06-10] MEDS: Furosemide 40 MG TABLET PO SCH (11:48)
--- NOTE | 2017-06-10 18:46 | Event Note ---
Date of Encounter: 06/10/17 Time of Encounter: 18:46 Patient was reevaluated to see evening. Physical therapy continues to work with him. Sometimes he has too much pain or exhaustion to participate. No cardiac or respiratory symptoms. Appetite is good. Vitals are stable. No new intervention.
[2017-06-10] MEDS: Mirtazapine 15 MG TABLET PO SCH (19:48)
[2017-06-11] MEDS: *HR* Enoxaparin 40 MG/0.4 ML SYRINGE SQ SCH (05:49)
[2017-06-11 06:11] LABS: Eosinophils # 0.2 K/mcL (0.0-0.6); Eosinophils % 2.4 %; Hematocrit 30.9 % (37.5-50.1); Hemoglobin 10.2 g/dL (12.9-16.9); Immature Granulocytes % 0.4 % (0-4); Mean Corpuscular Hemoglobin 32.9 pg (28.0-33.3); Mean Corpuscular Volume 99.7 fL (83.0-100.0); Mean Platelet Volume 10.9 fL (9.4-12.4); Monocytes # 0.6 K/mcL (0.0-1.3); Monocytes % 8.8 %; Neutrophils # 4.3 K/mcL (1.6-8.9); Platelet Count 129 K/mcL (140-400); Red Cell Distribution Width 14.8 % (11.5-14.5); Segmented Neutrophils % 60.4 %
[2017-06-11 06:28] LABS: BUN/Creatinine Ratio 22 (6-26); Blood Urea Nitrogen 27 mg/dL (8-23); Calcium 8.6 mg/dL (8.6-10.3); Carbon Dioxide 25 mEq/L (23-29); Chloride 104 mEq/L (98-107); Creatine Kinase 445 Units/L (30-223); Glucose 88 mg/dL (70-105); Osmolality,Calculated 285 (280-300); Potassium 4.3 mEq/L (3.5-5.1); Sodium 135 mEq/L (136-145); eGFR For African Americans > 60 (> 60); eGFR For Non-African Americans 56 (> 60)
--- NOTE | 2017-06-11 06:38 | Internal Med Progress Note ---
Date of Encounter: 06/12/17 Time of Encounter: 06:37 - Assessment and plan (1) Physical deconditioning Current Visit: Yes Status: Acute Assessment and plan: He still continues with PT and OT but it has been a struggle. Sometimes he is too weak or fearful, other times too much pain. He will need ECF for long-term PT and OT to regain his ADLs. We are working to arrange placement. (2) Rhabdomyolysis Current Visit: Yes Status: Acute Assessment and plan: History rhabdomyolysis and CPK markedly improved. Renal function stabilized. No longer needing IV fluids. Taking by mouth well. Qualifiers: Rhabdomyolysis type: traumatic Encounter type: initial encounter Qualified Code(s): T79.6XXA - Traumatic ischemia of muscle, initial encounter (3) History of multiple trauma Current Visit: No Status: Acute Assessment and plan: No new changes for now. Continue PT and OT and wound care. (4) Hx of CABG Current Visit: Yes Status: Chronic Assessment and plan: No angina or symptoms of CHF. His BNP markedly improved. (5) Anemia Current Visit: No Status: Acute Assessment and plan: Hemoglobin improving. Has chronic anemia. Qualifiers: Anemia type: other cause Other causes of anemia: other cause, not classified Qualified Code(s): D64.89 - Other specified anemias (6) Frequent falls Current Visit: Yes Status: Acute Assessment and plan: Needs continued PT and OT to help regain his ADLs. (7) Abrasion hip/leg Current Visit: Yes Status: Acute Assessment and plan: We will be evaluated by wound care today. He also has decubitus on his spine. Qualifiers: Encounter type: initial encounter Laterality: left Qualified Code(s): S80.812A - Abrasion, left lower leg, initial encounter (8) Status post transcatheter aortic valve replacement Current Visit: No Status: Acute Assessment and plan: No angina or CHF noted. (9) Pacemaker Current Visit: No Status: Acute (10) Anemia Current Visit: No Status: Acute Qualifiers: Anemia type: unspecified type Qualified Code(s): D64.9 - Anemia, unspecified (11) Hypocalcemia Current Visit: No Status: Acute (12) Thrombocytopenia Current Visit: No Status: Acute Assessment and plan: Resolved (13) Left upper extremity swelling Current Visit: Yes Status: Acute Assessment and plan: Less swelling of the left upper extremity. Negative for DVT/thrombus (14) DVT prophylaxis Current Visit: No Status: Acute - Subjective Interval history: She denies any chest pain or dyspnea. Appetite is good. No complains of left upper extremity but it is still swollen but improving. Some left shoulder pain. He is still very apprehensive/fearful of falling which limits his therapies and ADLs. - Constitutional Vitals: Temp Pulse Resp BP Pulse Ox 97.6 F 94 16 159/78 95 06/10/17 20:00 06/10/17 20:00 06/10/17 20:00 06/10/17 20:00 06/10/17 20:00 General appearance: Present: A&O X 3, answers questions appropriately - Respiratory Respiratory exam: Present: CTAB - Cardiovascular Cardiovascular exam: Present: RRR, +S1, +S2, systolic murmur (2-3/6 over the left sternal border) - GI/Abdominal GI/Abdominal exam: Present: soft. Absent: tenderness - Extremities Exam Additional comments: Continued diffuse edema left upper extremity, seems improved. Nontender. Not warm or hot. No open areas. The skin on the dorsal forearm is very thin as if maybe heel or blister. Dorsum of hand swollen. Function good. Internal Medicine: Result - Labs CBC & Chem 7: 06/11/17 05:50 06/11/17 05:50 Labs: Short CBC 06/11/17 Range/Units 05:50 WBC 7.2 (4.3-11.1) K/mcL Hgb 10.2 L (12.9-16.9) g/dL Hct 30.9 L (37.5-50.1) % Plt Count 129 L (140-400) K/mcL Neutrophils # 4.3 (1.6-8.9) K/mcL BMP 06/11/17 05:50 Sodium 135 L Potassium 4.3 Chloride 104 Carbon Dioxide 25 BUN 27 H Creatinine 1.23 Glucose 88 Calcium 8.6 Labs reviewed and markedly improved. - ABG Interpretation ABG results: PT/INR, D-dimer PT 12.1 Seconds (9.4-12.1) 06/09/17 04:20 - VTE Documentation of Mechanical Device: Graduated compression elastic hosiery Consult Discharge Plan - Plan Referrals: Denzel Mcgarry MD [Primary Care Provider] -
[2017-06-11] MEDS: Ranolazine 500 MG TAB.ER.12H PO SCH ×2 (09:14→19:37)
[2017-06-11] MEDS: Sennosides/Docusate Sodium TABLET PO SCH (09:14)
[2017-06-11] MEDS: Aspirin 81 MG TAB.CHEW PO SCH (09:14)
[2017-06-11] MEDS: Furosemide 40 MG TABLET PO SCH (09:14)
[2017-06-11] MEDS: Mirtazapine 15 MG TABLET PO SCH (19:37)
[2017-06-12] MEDS: *HR* Enoxaparin 40 MG/0.4 ML SYRINGE SQ SCH (05:13)
[2017-06-12] MEDS: Sennosides/Docusate Sodium TABLET PO SCH (08:17)
[2017-06-12] MEDS: Ranolazine 500 MG TAB.ER.12H PO SCH ×2 (08:18→20:35)
[2017-06-12] MEDS: Aspirin 81 MG TAB.CHEW PO SCH (08:18)
[2017-06-12] MEDS: Furosemide 40 MG TABLET PO SCH (08:18)
--- NOTE | 2017-06-12 10:23 | Internal Med Progress Note ---
Date of Encounter: 06/12/17 Time of Encounter: 10:23 - Assessment and plan (1) Physical deconditioning Current Visit: Yes Status: Acute Assessment and plan: He is still continues with PT and OT but it has been a struggle. He is apprehensive about being up and about because of fear of falling. We are working on placement at [facility]. (2) Rhabdomyolysis Current Visit: Yes Status: Acute Assessment and plan: His rhabdomyolysis is improving. CPK is normalizing. Renal function stabilized. He does not need IV fluids and he is taking by mouth well. Qualifiers: Rhabdomyolysis type: traumatic Encounter type: initial encounter Qualified Code(s): T79.6XXA - Traumatic ischemia of muscle, initial encounter (3) History of multiple trauma Current Visit: Yes Status: Acute Assessment and plan: He is stable in this regard. Still needs PT and OT to regain his ADLs. (4) Hx of CABG Current Visit: Yes Status: Chronic Assessment and plan: No angina or CHF. (5) DVT prophylaxis Current Visit: No Status: Acute (6) Anemia Current Visit: No Status: Acute Assessment and plan: Anemia has been improving. Qualifiers: Anemia type: other cause Other causes of anemia: other cause, not classified Qualified Code(s): D64.89 - Other specified anemias (7) Frequent falls Current Visit: Yes Status: Acute Assessment and plan: H continue PT and OT and ECF placement. (8) Abrasion hip/leg Current Visit: Yes Status: Acute Assessment and plan: To be evaluated by wound care today. Qualifiers: Encounter type: initial encounter Laterality: left Qualified Code(s): S80.812A - Abrasion, left lower leg, initial encounter (9) Status post transcatheter aortic valve replacement Current Visit: No Status: Acute (10) Pacemaker Current Visit: No Status: Acute (11) Anemia Current Visit: No Status: Acute Qualifiers: Anemia type: unspecified type Qualified Code(s): D64.9 - Anemia, unspecified (12) Hypocalcemia Current Visit: No Status: Acute (13) Thrombocytopenia Current Visit: No Status: Acute (14) Left upper extremity swelling Current Visit: Yes Status: Acute Assessment and plan: Much improved. Negative ultrasound for thrombus/DVT. - Subjective Interval history: Patient denies any cardiac or respiratory symptoms. His bowels are moving normally. He has a good appetite. He is still fearful/apprehensive about ADLs and standing and participating with therapy because of fear of falling. He and I talked about ECF placement as he knows he needs longer care than what we can offer here. He has chosen [facility]. We will check on the bed. He has no new acute symptoms otherwise. - Constitutional Vitals: Temp Pulse Resp BP Pulse Ox 98.3 F 94 16 102/63 95 06/11/17 19:23 06/11/17 19:23 06/11/17 19:23 06/11/17 19:23 06/11/17 19:23 General appearance: Present: A&O X 3, answers questions appropriately - Respiratory Respiratory exam: Present: CTAB - Cardiovascular Cardiovascular exam: Present: RRR, +S1, +S2, systolic murmur (2/6 systolic murmur) - Extremities Exam Additional comments: Left upper extremity shows a lot less swelling. He does still have some edema at the elbow and forearm and hand but improved. Nontender. Not red or hot. Does have protective patch on the left elbow from previous skin tear or wound. - Skin Additional comments: I did not remove his dressings and evaluate his lesions. He is going to be seen by wound care today. Internal Medicine: Result - Labs CBC & Chem 7: 06/11/17 05:50 06/11/17 05:50 Labs: Labs have been reviewed. Hemoglobin improving. Thrombocytopenia improving. Renal function stable. - ABG Interpretation ABG results: PT/INR, D-dimer PT 12.1 Seconds (9.4-12.1) 06/09/17 04:20 - VTE Documentation of Mechanical Device: Graduated compression elastic hosiery Consult Discharge Plan - Plan Referrals: Denzel Mcgarry MD [Primary Care Provider] -
[2017-06-12] MEDS: Mirtazapine 15 MG TABLET PO SCH (20:35)
[2017-06-13] MEDS: *HR* Enoxaparin 40 MG/0.4 ML SYRINGE SQ SCH (05:36)
[2017-06-13 07:47] VITALS: BP 163/79
[2017-06-13] MEDS: Aspirin 81 MG TAB.CHEW PO SCH (09:13)
[2017-06-13] MEDS: Sennosides/Docusate Sodium TABLET PO SCH (09:13)
[2017-06-13] MEDS: Furosemide 40 MG TABLET PO SCH (09:13)
[2017-06-13] MEDS: Ranolazine 500 MG TAB.ER.12H PO SCH (09:13)
--- NOTE | 2017-06-13 13:55 | Discharge Summary ---
- NOTES TO OUTPATIENT PROVIDER Notes to Outpatient Provider: Patient needs aggressive PT and OT. He has apprehension/fear of falling again. Multiple skin abrasions from the fall as well as decubitus on his thoracic spine. Please see the wound clinic recommendations. Date of Encounter: 06/13/17 Time of Encounter: 13:43 - Discharge Diagnosis (1) Physical deconditioning Priority: Primary Status: Acute Comments: Patient was admitted to medical swing bed has been first admitted with a falling episode and having been on the floor for possibly a day and a half. He had no prodromal symptoms or loss of consciousness noted. He apparently was in the kitchen and stepped backwards and lost his balance and fell. He subsequently could not get off the floor. He had elevated CPK and acute kidney injury and was treated for rhabdomyolysis in the acute setting. As recuperating from that he was medically stable but was very weak and needed to initiate PT and OT. However, he is not progressing appropriately for inpatient therapy and will need extended care at an [facility]. He will be transferred to [facility] today. (2) Rhabdomyolysis Priority: Secondary Status: Acute Comments: When he was in the acute bed he was treated for rhabdomyolysis with CPK of over 4000. His creatinine bumped up a bit but improved with IV fluids. His CPK dropped significantly. He is now maintaining good intake by mouth and fluids. Renal function is back to baseline. Qualifiers: Rhabdomyolysis type: traumatic Encounter type: initial encounter Qualified Code(s): T79.6XXA - Traumatic ischemia of muscle, initial encounter (3) History of multiple trauma Priority: Secondary Status: Acute Comments: He has a prior history of multiple trauma from previous falling episodes including in the past year or so fracture of his left patella, pelvis, clavicle , cervical spine and numerous other injuries. This time he has abrasions to the left lateral hip/thigh, left posterior shoulder, and has sustained a decubitus in the thoracic spine from lying in bed as he does not like to be on his side. He needs ongoing PT and OT to help regain his ADLs with the hopes of going home. (4) Hx of CABG Priority: Secondary Status: Chronic Comments: He has a history of previous CAD and CABG 5 vessels. During this hospital stay he did have a bump up in his BNP but did not have obvious clinical findings of CHF though. His previous echocardiogram showed ejection fraction 35 % when he had his TAVR. Echo done this week shows 50% ejection fraction. He has had no angina or acute pulmonary symptoms during this hospital stay. (5) Anemia Priority: Secondary Status: Acute Comments: Patient has a long-standing history of mild anemia. It has been stable. He continues with his iron. He is not a candidate for full workup at this time. No history of blood in stools. Qualifiers: Anemia type: other cause Other causes of anemia: other cause, not classified Qualified Code(s): D64.89 - Other specified anemias (6) Frequent falls Priority: Secondary Status: Acute Comments: As above (7) Abrasion hip/leg Priority: Secondary Status: Acute Comments: On admission he was noted to have an abrasion to left lateral thigh/hip as well as the left posterior scapular area. It is been treated with protective dressing. Wound clinic has seen him. Continue treatment. Qualifiers: Encounter type: initial encounter Laterality: left Qualified Code(s): S80.812A - Abrasion, left lower leg, initial encounter (8) Status post transcatheter aortic valve replacement Priority: Secondary Status: Chronic Comments: Status post TAVR in the past year or so. His ejection fraction was 35%. It is now 50%. He is having no angina or CHF symptoms or findings. 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 I added Eliquis when he had a concern for a DVT but there was none. During this hospital stay I did discontinue his Eliquis as he had a drop in his hemoglobin temporarily. With his history of falling episodes we discussed the risks and benefits of full anticoagulation and have opted to use aspirin. There have been no signs of atrial fibrillation. (9) Pacemaker Priority: Secondary Status: Chronic Comments: He has a history of a pacemaker for third-degree heart block. His monitor showed ventricular pacing without significant abnormality otherwise. (10) Hypocalcemia Priority: Secondary Status: Resolved Comments: Temporarily he had hypocalcemia, thrombocytopenia and worsening anemia. All of those resolved on repeat of lab test. No further problems noted with this. (11) Thrombocytopenia Priority: Secondary Status: Acute Comments: Temporarily he had a drop in his platelets to 89,000. It is now resolving back to normal. No signs of active bleeding. No signs of DIC or sepsis. (12) Left upper extremity swelling Priority: Secondary Status: Acute Comments: History help left upper extremity edema from the humerus to the fingers. It is not showing improvement. A negative ultrasound for thrombus. It does not bother him and it is resolving. They have been just positional. Hospital course: Mr. Cortes is a 81 year old male who was first admitted to the acute bed with having been on the floor anywhere from 7 hours to a day and a half having fallen backwards. He denied any loss of consciousness or any prodromal symptoms. He developed elevated CPK and acute kidney injury and treated for rhabdomyolysis. He was very weak and he was transferred to a swing bed for PT and OT. He is not progressing an appropriate level for an acute inpatient therapies and will be transferred to a [place] [facility]. Please see the diagnoses above. Please see the previous history and physical. Discharge discussed with: patient, family - Time Spent with Patient Total time spent providing and/or coordinating discharge services: - Discharge Medications Prescriptions: Ascorbic Acid [Vitamin C] 500 mg PO DAILY #30 tablet.er Multivit,Th Iron,Other Min [Thera-M] 1 each PO DAILY #30 tablet Potassium Chloride [K-Tab ER] 20 meq PO DAILY #30 tablet.er Home Medications: Atorvastatin [Lipitor] 20 mg PO HS 09/16/15 [History] Ferrous Sulfate [Iron] 325 mg PO DAILY 09/16/15 [History] Ranolazine [Ranexa] 500 mg PO BID 09/16/15 [History] Acetaminophen [Tylenol] 975 mg PO Q8HR PRN #0 tablet 10/11/15 [Rx] Mirtazapine [Remeron] 15 mg PO HS 06/05/17 [History] Olmesartan Medoxomil 5 mg PO DAILY 06/06/17 [History] Acetaminophen [Tylenol] 500 mg PO Q4HR PRN tablet 06/13/17 [Rx] Ascorbic Acid [Vitamin C] 500 mg PO DAILY #30 tablet.er 06/13/17 [Rx] Aspirin 81 mg PO DAILY tab.chew 06/13/17 [Rx] Carvedilol [Coreg] 3.125 mg PO BIDWM tablet 06/13/17 [Rx] Furosemide [Lasix] 40 mg PO DAILY tablet 06/13/17 [Rx] Magnesium Oxide [Magnesium] 400 mg PO BID #0 06/13/17 [Rx] Multivit,Th Iron,Other Min [Thera-M] 1 each PO DAILY #30 tablet 06/13/17 [Rx] Potassium Chloride [K-Tab ER] 20 meq PO DAILY #30 tablet.er 06/13/17 [Rx] Sennosides/Docusate Sodium [Senna Plus] 1 each PO DAILY tablet 06/13/17 [Rx] Allergies/Adverse Reactions: 3 Allergy/AdvReac Type Severity Reaction Status Date / Time Penicillins Allergy See Verified 09/23/15 13:23 Comments hydrocodone AdvReac Nausea Verified 09/23/15 22:04 Date of admission: 06/08/17 11:04 Primary care physician: Denzel Mcgarry MD Consults: 06/08/17 12:05 Consult to Occupational Therapy [CONS] Routine Comment: eval and treat Reason for Consult: falls and weakness Consult to Physical Therapy [CONS] Routine Comment: eval and treatment Reason for Consult: weakness and falls Consult to Recreational Therapy [CONS] Routine Comment: Consult to Manager Labor Delivery [CONS] Routine Reason for SW Consult: discharge planning 06/11/17 06:49 Consult to Wound Care [CONS] Routine Reason for Consult: decubiti, abrasions form fall Call Completed: No Discharging clinician: Denzel Mcgarry Anticipated date of discharge: 06/13/17 - Constitutional Vitals: Temp Pulse Resp BP Pulse Ox 97.7 F 89 18 163/79 93 06/13/17 07:46 06/13/17 07:46 06/13/17 07:46 06/13/17 07:46 06/13/17 07:46 General appearance: Present: A&O X 3, answers questions appropriately - Respiratory Respiratory exam: Present: CTAB. Absent: respiratory distress - Cardiovascular Cardiovascular exam: Present: RRR, +S1, +S2, systolic murmur (2 to 3/6 systolic murmur heard best at the left sternal border) - GI/Abdominal GI/Abdominal exam: Present: soft. 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 Unfortunately, he has developed a small superficial decubitus from lying supine for so long as he does not like to turn on his sides. - Skin Additional comments: Abrasion injury to the left lateral thigh, left posterior scapular area. He has a new decubitus during this hospital stay in the thoracic spine area. All which have been evaluated and dressed by wound clinic. - Patient Status Disposition: Transfer SNF Condition: Good Functional capacity at discharge: uses cane/walker Overall status at discharge: patient is not back to baseline - Discharge Instructions Follow Up With: Denzel Mcgarry MD [Primary Care Provider] - - VTE Documentation of Mechanical Device: Graduated compression elastic hosiery
--- NOTE | 2017-06-13 15:16 | Physician Discharge Referral ---
ExtendedCare Referral Info [facility] Provider in Charge: Provider in Charge after Transfer: PCP Institutional Level of Care: Skilled - Diagnosis (1) Physical deconditioning Status: Acute (2) Rhabdomyolysis Status: Acute (3) History of multiple trauma Status: Acute (4) Hx of CABG Status: Chronic (5) Anemia Status: Acute (6) Frequent falls Status: Acute (7) Abrasion hip/leg Status: Acute (8) Status post transcatheter aortic valve replacement Status: Chronic (9) Pacemaker Status: Chronic (10) Hypocalcemia Status: Resolved (11) Thrombocytopenia Status: Acute (12) Left upper extremity swelling Status: Acute - Transfer Medications Prescriptions: Ascorbic Acid [Vitamin C] 500 mg PO DAILY #30 tablet.er Multivit,Th Iron,Other Min [Thera-M] 1 each PO DAILY #30 tablet Potassium Chloride [K-Tab ER] 20 meq PO DAILY #30 tablet.er Home Medications: Atorvastatin [Lipitor] 20 mg PO HS 09/16/15 [History] Ferrous Sulfate [Iron] 325 mg PO DAILY 09/16/15 [History] Ranolazine [Ranexa] 500 mg PO BID 09/16/15 [History] Acetaminophen [Tylenol] 975 mg PO Q8HR PRN #0 tablet 10/11/15 [Rx] Mirtazapine [Remeron] 15 mg PO HS 06/05/17 [History] Olmesartan Medoxomil 5 mg PO DAILY 06/06/17 [History] Acetaminophen [Tylenol] 500 mg PO Q4HR PRN tablet 06/13/17 [Rx] Ascorbic Acid [Vitamin C] 500 mg PO DAILY #30 tablet.er 06/13/17 [Rx] Aspirin 81 mg PO DAILY tab.chew 06/13/17 [Rx] Carvedilol [Coreg] 3.125 mg PO BIDWM tablet 06/13/17 [Rx] Furosemide [Lasix] 40 mg PO DAILY tablet 06/13/17 [Rx] Magnesium Oxide [Magnesium] 400 mg PO BID #0 06/13/17 [Rx] Multivit,Th Iron,Other Min [Thera-M] 1 each PO DAILY #30 tablet 06/13/17 [Rx] Potassium Chloride [K-Tab ER] 20 meq PO DAILY #30 tablet.er 06/13/17 [Rx] Sennosides/Docusate Sodium [Senna Plus] 1 each PO DAILY tablet 06/13/17 [Rx] Allergies/Adverse Reactions: 3 Allergy/AdvReac Type Severity Reaction Status Date / Time Penicillins Allergy See Verified 09/23/15 13:23 Comments hydrocodone AdvReac Nausea Verified 09/23/15 22:04 - Respiratory Orders Smoking Cessation: Smoking cessation has been advised. For more information, call the [employer] Tobacco Quit Line at 4-074-ROOY-NOW. - Ancillary Orders May use pressure relief devices daily prn, May go on JONI w/family/respon democrat w /meds at nurse discretion PRN - Advance Directives Code Status: Full Code - Mobility Orders Ambulate - Rehabiliation Orders Rehab Potential: Good Rehab Orders: Evaluation for Physical Therapy, Evaluation for Occupational Therapy - Treatments Skin tear care topically daily PRN per policy - Diet Orders No Added Salt (KAYLEN) House Supplement per Dietary: House supplement at least bid -tid CERTIFICATION: I certify that the transfer of the above named patient to an Extended Care Facility is necessary for the continuing treatment of the diagnosis listed. The above information is true and accurate reflection of patient's current condition. Confidential - Redisclosure prohibited without a patient's written consent.
== END 2017-06-13 17:52 | DRG 945 ==
LOC: PREOBSVTOIN 11:03 → PREINTOOBSV 16:10 → INPGRE 06-08 11:04
PROVIDERS: ADMIT Family Medicine; ATTEND Family Medicine

== ENCOUNTER 2017-12-08 18:13 | Inpatient (IN) ==
--- NOTE | 2017-12-08 18:49 | Emergency Department Note ---
Disposition Clinical Impression: Dehydration, Gastroenteritis Disposition: Admitted As Inpatient Condition: Good Nausea/Vomiting/Diarrhea HPI - General Chief complaint: ED Nausea/Vomiting/Diarrhea Stated complaint: Diarhhea, Confused Time Seen by Provider: 12/08/17 18:26 Source: patient, EMS Mode of arrival: EMS Limitations: no limitations Nursing Notes Reviewed: Yes Vital Signs Reviewed: Yes - History of Present Illness HPI Narrative: 82-year-old male presents to the ER with persistent diarrhea. Patient and family are patient has had watery stools at least 5-6 daily for the past 3 days. Patient has tried Imodium and Lomotil without improvement of stools. Patient reported yesterday he did have some crampy abdominal pain in his left lower quadrant which has resolved patient reports mild nausea no vomiting no fevers or chills. Patient has not been in any antibiotics. Patient is not had any recent travel or new medicines. Patient was admitted approximately 2 months ago for diverticulitis. Pt Subjective Complaint: diarrhea Onset (ago): day(s) (3) Description of emesis: watery, foul-smelling Description of Diarrhea: water Associated Abdominal Pain: Yes (had some yesterday none today) Severity: mild Quality: cramping Consistency: intermittent Improves with: nothing Worsens with: nonthing Associated symptoms: Reports: loss of appetite, nausea/vomiting, weakness - Related Data Home Medications Medication Instructions Recorded Confirmed Ferrous Sulfate [Iron] 325 mg PO DAILY 09/16/15 11/25/17 Ranolazine [Ranexa] 500 mg PO BID 09/16/15 11/25/17 Mirtazapine [Remeron] 15 mg PO HS 06/05/17 11/25/17 Magnesium Oxide [Magnesium] 400 mg PO DAILY 11/25/17 11/25/17 Atorvastatin Calcium [Lipitor] 20 mg PO 12/06/17 Previous Rx's Medication Instructions Recorded Acetaminophen [Tylenol] 975 mg PO Q8HR PRN #0 tablet 10/11/15 Acetaminophen [Tylenol] 500 mg PO Q4HR PRN tablet 06/13/17 Aspirin 81 mg PO DAILY tab.chew 06/13/17 Carvedilol [Coreg] 3.125 mg PO BIDWM tablet 06/13/17 Furosemide [Lasix] 40 mg PO DAILY tablet 06/13/17 Potassium Chloride [K-Tab ER] 20 meq PO DAILY #30 tablet.er 06/13/17 Allergies Allergy/AdvReac Type Severity Reaction Status Date / Time Penicillins Allergy See Verified 09/23/15 13:23 Comments hydrocodone AdvReac Nausea Verified 09/23/15 22:04 All systems ED: reviewed and negative except as stated. Review of Systems: As Per HPI Constitutional: Reports: weakness. Denies: fever, chills Gastrointestinal: Reports: abdominal pain, nausea, diarrhea. Denies: vomiting, melena, hematochezia Genitourinary: Denies: urgency, dysuria Musculoskeletal: Denies: back pain Integumentary: Denies: rash Neurological: Reports: weakness. Denies: headache Endocrine: Reports: fatigue Hematological/Lymphatic: Reports: easy bruising. Denies: easy bleeding Past Medical History - Past Medical History Attestation: Yes The following information was validated with the patient. Source: patient, nursing notes reviewed Medical history: Reports: atrial fibrillation, cardiomyopathy, CHF, coronary artery disease, hyperlipidemia, hypertension, valvular heart disease, other Surgical history: Reports: coronary bypass (CABG), herniorrhaphy, hip replacement, pacemaker/AICD, other, pacemaker Psychiatric history: Reports: no psych history - Social History Smoking Status: Former smoker Smokeless Tobacco Status: No Alcohol use: Reports: none Drug use: Reports: none Physical Exam - General Limitations: no limitations General appearance: alert, in no apparent distress - Head Head exam: atraumatic, normocephalic - Eye Eye exam: Present: PERRL, EOMI. Absent: conjunctival injection - ENT ENT exam: mucous membranes dry - Neck Neck exam: Present: normal inspection, full ROM. Absent: lymphadenopathy, thyromegaly - Expanded Neck Exam Neck exam focused ED: Absent: JVD - Chest Chest inspection: Present: normal inspection, symmetric chest wall rise - Respiratory Respiratory exam: Present: normal lung sounds bilaterally. Absent: respiratory distress - Cardiovascular Cardiovascular exam: Present: regular rate, normal rhythm, normal heart sounds - Abdominal Exam Abdominal exam: Present: soft, tenderness, hyperactive bowel sounds Abdominal tenderness: Present: LLQ, mild - Extremities Exam Extremities exam: Present: normal inspection, full ROM. Absent: pedal edema - Neurological Exam Neurological exam: Present: alert, oriented X3 - Psychiatric Psychiatric exam: Present: normal affect, normal mood - Skin Skin exam: Present: warm, dry, intact, normal color Course Course Narrative: Patient was given gentle hydration. Patient did continue to have loose stools in the emergency room. These were sent for culture and C. difficile. Due to persistent diarrhea, mild tachycardia and mild hypotension will admit patient for further hydration and evaluation. Will treat patient with a dose of Flagyl until C. difficile cultures come back. I have spoken with Dr. Mcgarry he is accepted patient for admission. I have spoken with patient regarding his CODE STATUS that he wishes to be a full code Vital Signs Temperature 98.0 F 12/08/17 18:14 Pulse Rate 100 12/08/17 18:14 Respiratory Rate 18 12/08/17 18:14 Blood Pressure 97/62 12/08/17 18:14 O2 Sat by Pulse Oximetry 97 12/08/17 18:14 Temperature 98.4 F 12/09/17 07:33 Pulse Rate 89 12/09/17 07:33 Respiratory Rate 17 12/09/17 07:33 Blood Pressure 130/61 12/09/17 07:33 O2 Sat by Pulse Oximetry 97 12/09/17 07:33 Oxygen Delivery Oxygen Delivery Room Air Nausea/Vomiting/Diarrhea - Differential Diagnosis Likely: gastroenteritis, clostridium difficile infection, dehydration. Unlikely : surgical process, bowel obstruction - Lab Data Lab results reviewed: Yes I reviewed the patient's lab results. Lab results narrative: Patient's labs reviewed.. Patient's white count is normal. Patient's H&H is stable. Patient is stable renal insufficiency. Results discussed with patient and family. Result diagrams: 12/09/17 05:15 12/09/17 05:15 Lab Results 12/08/17 12/08/17 12/08/17 Range/Units 18:45 19:35 19:35 WBC 7.3 (4.3-11.1) K/mcL RBC 3.76 L (4.19-5.50) M/mcL Hgb 13.1 (12.9-16.9) g/dL Hct 38.3 (37.5-50.1) % MCV 101.9 H (83.0-100.0) fL MCH 34.8 H (28.0-33.3) pg MCHC 34.2 (31.6-35.5) g/dL RDW 14.3 (11.5-14.5) % Plt Count 162 (140-400) K/mcL MPV 11.3 (9.4-12.4) fL Immature Gran % 0.3 (0-4) % Seg Neutrophils % 68.8 % Lymphocytes % 14.0 % Monocytes % 15.8 % Eosinophils % 1.0 % Basophils % 0.1 % Neutrophils # 5.0 (1.6-8.9) K/mcL Lymphocytes # 1.0 (0.6-4.6) K/mcL Monocytes # 1.2 (0.0-1.3) K/mcL Eosinophils # 0.1 (0.0-0.6) K/mcL Basophils # 0.0 (0.0-0.2) K/mcL Platelet Estimate Normal (Normal) Sodium 130 L (136-145) mEq/L Potassium 4.0 (3.5-5.1) mEq/L Chloride 96 L (98-107) mEq/L Carbon Dioxide 26 (23-29) mEq/L BUN 57 H (8-23) mg/dL Creatinine 1.82 H (0.70-1.30) mg/dL Est GFR ( Amer) 43 L (> 60) Est GFR (Non-Af Amer) 36 L (> 60) BUN/Creatinine Ratio 31 H (6-26) Glucose 176 H (70-105) mg/dL Calculated Osmolality 290 (280-300) Calcium 9.3 (8.6-10.3) mg/dL Total Bilirubin 0.6 (0.3-1.0) mg/dL AST 15 (13-39) Units/L ALT 15 (7-52) Units/L Alkaline Phosphatase 142 H (34-104) Units/L Serum Total Protein 7.3 (6.4-8.9) g/dL Albumin 3.7 (3.5-5.7) g/dL Globulin 3.6 H (2.4-3.5) g/dL Albumin/Globulin Ratio 1.0 L (1.1-2.2) Urine Color (Yellow) Urine Clarity (Clear) Urine pH (5.0-8.0) pH Units Ur Specific Occidental (1.010-1.025) Urine Protein (Neg-Trace) mg/dL Urine Glucose (UA) (Normal) mg/dL Urine Ketones (Negative) mg/dL Urine Blood (Negative) Urine Nitrite (Negative) Urine Bilirubin (Negative) Urine Urobilinogen (Normal) mg/dL Ur Leukocyte Esterase (Negative) Ur Culture Indicated? (NO) Stool Occult Blood Positive A (Negative) 12/08/17 Range/Units 20:42 WBC (4.3-11.1) K/mcL RBC (4.19-5.50) M/mcL Hgb (12.9-16.9) g/dL Hct (37.5-50.1) % MCV (83.0-100.0) fL MCH (28.0-33.3) pg MCHC (31.6-35.5) g/dL RDW (11.5-14.5) % Plt Count (140-400) K/mcL MPV (9.4-12.4) fL Immature Gran % (0-4) % Seg Neutrophils % % Lymphocytes % % Monocytes % % Eosinophils % % Basophils % % Neutrophils # (1.6-8.9) K/mcL Lymphocytes # (0.6-4.6) K/mcL Monocytes # (0.0-1.3) K/mcL Eosinophils # (0.0-0.6) K/mcL Basophils # (0.0-0.2) K/mcL Platelet Estimate (Normal) Sodium (136-145) mEq/L Potassium (3.5-5.1) mEq/L Chloride (98-107) mEq/L Carbon Dioxide (23-29) mEq/L BUN (8-23) mg/dL Creatinine (0.70-1.30) mg/dL Est GFR ( Amer) (> 60) Est GFR (Non-Af Amer) (> 60) BUN/Creatinine Ratio (6-26) Glucose (70-105) mg/dL Calculated Osmolality (280-300) Calcium (8.6-10.3) mg/dL Total Bilirubin (0.3-1.0) mg/dL AST (13-39) Units/L ALT (7-52) Units/L Alkaline Phosphatase (34-104) Units/L Serum Total Protein (6.4-8.9) g/dL Albumin (3.5-5.7) g/dL Globulin (2.4-3.5) g/dL Albumin/Globulin Ratio (1.1-2.2) Urine Color Yellow (Yellow) Urine Clarity Clear (Clear) Urine pH 5.5 (5.0-8.0) pH Units Ur Specific Occidental >= 1.030 H (1.010-1.025) Urine Protein Trace (Neg-Trace) mg/dL Urine Glucose (UA) Normal (Normal) mg/dL Urine Ketones Negative (Negative) mg/dL Urine Blood Negative (Negative) Urine Nitrite Negative (Negative) Urine Bilirubin Negative (Negative) Urine Urobilinogen Normal (Normal) mg/dL Ur Leukocyte Esterase Negative (Negative) Ur Culture Indicated? NO (NO) Stool Occult Blood (Negative) - Radiology Data Radiology results reviewed: Yes I reviewed the patient's radiology results. Patient's CT of the abdomen and pelvis was interpreted by the radiologist as negative for acute abnormalities. Patient does have dilated large bowel loops and no evidence of obstruction question possible ileus. Patient has inguinal hernia with no retraction. Patient does have diverticulosis without evidence of diverticulitis. Results discussed with patient and family.
[2017-12-08] MEDS ORDERED: 0.9 % Sodium Chloride 1,000 ML IVC SCH ×3 (19:00→21:45)
[2017-12-08 19:40] LABS: Basophils % 0.1 %; Eosinophils # 0.1 K/mcL (0.0-0.6); Hematocrit 38.3 % (37.5-50.1); Hemoglobin 13.1 g/dL (12.9-16.9); Immature Granulocytes % 0.3 % (0-4); Mean Corpuscular HGB Conc 34.2 g/dL (31.6-35.5); Mean Corpuscular Hemoglobin 34.8 pg (28.0-33.3); Mean Corpuscular Volume 101.9 fL (83.0-100.0); Mean Platelet Volume 11.3 fL (9.4-12.4); Monocytes # 1.2 K/mcL (0.0-1.3); Monocytes % 15.8 %; Platelet Count 162 K/mcL (140-400); Red Blood Count 3.76 M/mcL (4.19-5.50); Red Cell Distribution Width 14.3 % (11.5-14.5); Segmented Neutrophils % 68.8 %
[2017-12-08 19:56] LABS: Albumin 3.7 g/dL (3.5-5.7); Bilirubin,Total 0.6 mg/dL (0.3-1.0); Calcium 9.3 mg/dL (8.6-10.3); Globulin 3.6 g/dL (2.4-3.5); Total Protein 7.3 g/dL (6.4-8.9)
[2017-12-08 20:28] LABS: Platelet Estimate Normal (Normal)
[2017-12-08 20:55] LABS: Bilirubin,Urine Negative (Negative); Blood,Urine Negative (Negative); Clarity,Urine Clear (Clear); Color,Urine Yellow (Yellow); Glucose,Urine (UA) Normal (Normal); Ketones,Urine Negative (Negative); Leukocyte Esterase,Urine Negative (Negative); Nitrite,Urine Negative (Negative); PH,Urine 5.5 pH Units (5.0-8.0); Protein,Urine Trace mg/dL (Neg-Trace); Specific Gravity,Urine >= 1.030 (1.010-1.025); Urobilinogen,Urine Normal (Normal)
[2017-12-08] MEDS ORDERED: MetroNIDAZOLE 500 MG/100 ML 500 MG/100 ML BAG IVPB ONE (21:05)
[2017-12-08] MEDS ORDERED: Acetaminophen 325 MG TABLET PO PRN (21:32)
[2017-12-08] MEDS ORDERED: Naloxone 0.4 MG/ML INJ IVP PRN (21:36)
[2017-12-09] MEDS: Diphenoxylate/Atropine 1 TAB TABLET PO PRN ×2 (01:00→03:40)
[2017-12-09] MEDS: *HR* Enoxaparin 40 MG/0.4 ML SYRINGE SQ SCH (06:05)
[2017-12-09] MEDS: MetroNIDAZOLE 500 MG/100 ML 500 MG/100 ML BAG IVPB SCH ×2 (06:06→15:14)
[2017-12-09 06:23] LABS: Basophils % 0.2 %; Eosinophils # 0.1 K/mcL (0.0-0.6); Eosinophils % 2.2 %; Hematocrit 33.3 % (37.5-50.1); Hemoglobin 11.4 g/dL (12.9-16.9); Immature Granulocytes % 0.6 % (0-4); Lymphocytes # 1.7 K/mcL (0.6-4.6); Lymphocytes % 26.5 %; Mean Corpuscular HGB Conc 34.2 g/dL (31.6-35.5); Mean Corpuscular Hemoglobin 34.9 pg (28.0-33.3); Mean Corpuscular Volume 101.8 fL (83.0-100.0); Mean Platelet Volume 11.4 fL (9.4-12.4); Monocytes # 1.2 K/mcL (0.0-1.3); Monocytes % 18.8 %; Neutrophils # 3.3 K/mcL (1.6-8.9); Nucleated Red Blood Cells 0.3 /100 WBC (0); Platelet Count 154 K/mcL (140-400); Red Blood Count 3.27 M/mcL (4.19-5.50); Segmented Neutrophils % 51.7 %
[2017-12-09 06:46] LABS: Platelet Estimate Normal (Normal); Reactive Lymphocytes Present (Not Present)
[2017-12-09 06:54] LABS: Calcium 8.8 mg/dL (8.6-10.3); Potassium 3.2 mEq/L (3.5-5.1)
--- NOTE | 2017-12-09 07:01 | Internal Med History&Physical ---
Date of Encounter: 12/09/17 Time of Encounter: 06:58 Assessment and Plan (1) Diarrhea Current visit: Yes Status: Acute Unrelenting diarrhea to the point where he is continent hyponatremic, hypokalemic, weak and recurring falling episodes. Need to rule out C. difficile. Needs IV hydration. Obviously oral medications are not staying with him long as he is hypokalemic Qualifiers: Diarrhea type: presumed infectious Qualified Code(s): R19.7 - Diarrhea, unspecified (2) Dehydration with hyponatremia Current visit: Yes Status: Acute Likely mild dehydration with recurring falling episodes and generalized weakness. IV fluids will be initiated. (3) Heme positive stool Current visit: Yes Status: Acute Recurrence of heme positive stool. We need to watch his hemoglobin. Certainly not at brisk bleed. He is not a great candidate for upper lower endoscopies. Monitor his hemoglobin. We had already discontinued his full anticoagulation because of risk of bleeding. (4) Hx of CABG Current visit: No Status: Chronic No angina or CHF currently. We will monitor closely for electrolyte imbalance and also be cautious of fluid overload with IV fluids. (5) Multiple skin tears Current visit: Yes Status: Acute Multiple skin tears as well as decubiti. He will be seen by wound clinic as he has as an outpatient. (6) Hyponatremia Current visit: Yes Status: Acute Hyponatremia possibly from the diarrhea. Will follow. (7) Acute kidney injury Current visit: Yes Status: Acute Acute kidney injury likely from mild dehydration. IV fluids will be initiated (8) Frequent falls Current visit: Yes Status: Acute frequent falling episodes at home. Part of this may be due to his weakness and diarrhea. I have encouraged physical therapy. (9) Status post transcatheter aortic valve replacement Current visit: No Status: Chronic No angina or CHF noted. (10) Hypokalemia Current visit: Yes Status: Acute Acute hypokalemia, this may be from the diarrhea/malabsorption from his oral supplement. Will need intravenous potassium. (11) DVT prophylaxis Current visit: Yes Status: Acute We will use Lovenox for DVT prophylaxis as he was likely going to be bedbound for a while. Internal Medicine - H&P: HPI Chief complaint: "I got diarrhea that will not stop " Admitted From: Emergency Dept Plans for Post Hospital Care: Home History of present illness: Mr. Cortes is a 82 year old male with a known history of recurring falling episodes, history of CAD and CABG 5 vessels, pacemaker for third-degree heart block, multiple fractures in the past, and history of aortic stenosis and status post TAVR has been having unrelenting diarrhea at home for the past few days. He had several episodes of diarrhea treated with Imodium and then treated with prescription Lomotil. However, the frequency increased, the patient developed nausea, has had poor by mouth intake and I recommend that he be evaluated in the emergency room. There he was found to have acute kidney injury, hyponatremia and now has hypokalemia. CT scan of the abdomen showed dilated loops of bowel but otherwise no other acute changes. He has had multiple falling episodes at home because of loss of balance and generalized weakness. Despite house call less than 2 weeks ago these episodes have been worsening. Having developed the acute problems as noted in the ER I recommended the patient be admitted to the hospital. Consideration for C. difficile colitis is in the working diagnosis and he is in isolation precautions metronidazole was started in the ER. Since that time he has had ten liquid stools in the past 6 hours or so. He is also noted to have guaiac positive stool but no obvious melena. His hemoglobin did drop a bit after rehydration, likely he was having hemoconcentration from dehydration. Past Med Surg Social Fam HX - Past Medical History Medical history: atrial fibrillation, cardiomyopathy, CHF, coronary artery disease, hyperlipidemia, hypertension, valvular heart disease, other Additional medical history: ALEKNAGIK; hx of multiple falls at home, history of multiple fractures in the past Psychiatric history: no psych history - Past Surgical History Surgical History: coronary bypass (CABG), herniorrhaphy, hip replacement, pacemaker/AICD, other, pacemaker Additional surgical history: CABG; pacemaker - Social History Smoking Status: Former smoker Smokeless Tobacco Status: No Alcohol use: none Drug use: none - Family History Mother Living Status: Hx Family Respiratory Disorders: Yes (Tuberculosis) Father Living Status: Hx Family Neuromuscular Disorders: Yes (CVA) Internal Medicine - H&P: Meds Ferrous Sulfate [Iron] 325 mg PO DAILY 09/16/15 [History] Ranolazine [Ranexa] 500 mg PO BID 09/16/15 [History] Acetaminophen [Tylenol] 975 mg PO Q8HR PRN #0 tablet 10/11/15 [Rx] Mirtazapine [Remeron] 15 mg PO HS 06/05/17 [History] Acetaminophen [Tylenol] 500 mg PO Q4HR PRN tablet 06/13/17 [Rx] Aspirin 81 mg PO DAILY tab.chew 06/13/17 [Rx] Carvedilol [Coreg] 3.125 mg PO BIDWM tablet 06/13/17 [Rx] Furosemide [Lasix] 40 mg PO DAILY tablet 06/13/17 [Rx] Potassium Chloride [K-Tab ER] 20 meq PO DAILY #30 tablet.er 06/13/17 [Rx] Magnesium Oxide [Magnesium] 400 mg PO DAILY 11/25/17 [History] Atorvastatin Calcium [Lipitor] 20 mg PO 12/06/17 [History] 3 Allergy/AdvReac Type Severity Reaction Status Date / Time Penicillins Allergy See Verified 09/23/15 13:23 Comments hydrocodone AdvReac Nausea Verified 09/23/15 22:04 - Constitutional Constitutional: falls, no chills, no fever(s), no night sweats - EENT Eyes: no change in vision Ears: no ear discharge, no ear pain Nose, mouth and throat: no dry mouth, no sore throat - Cardiovascular Cardiovascular ROS IM: no chest pain, no diaphoresis, no dyspnea, no lightheadedness - Respiratory Respiratory: no cough, no dyspnea, no hemoptysis, no dyspnea on exertion - Gastrointestinal Gastrointestinal: change in bowel habits, diarrhea (As history of present illness), nausea (He developed nausea yesterday but now that is gone.), no coffee ground emesis, no heartburn, no hematemesis, no hematochezia, no vomiting - Genitourinary Genitourinary ROS male: no dysuria, no urinary frequency Additional comments: Family reported that his urine was getting very dark - Musculoskeletal Musculoskeletal ROS IM: limited range of motion, muscle weakness (Generalized muscle weakness and difficulty with ambulation) - Integumentary Integumentary IM: new lesions (He is being treated by the wound clinic for decubitus on his spine and dressing is in place. He has a skin tear on the right forearm.) - Neurological Neurological ROS: frequent falls (Patient continues with frequent falls and gets off balance easily.), weakness (Patient generalized weakness and difficulties with ambulation.), no dizziness (He denies that he has vertigo), no vertigo (He denies that he has vertigo) - Constitutional Vitals: Temp Pulse Resp BP Pulse Ox 98.1 F 86 17 120/76 97 12/09/17 04:00 12/09/17 04:00 12/09/17 04:00 12/09/17 04:00 12/09/17 04:00 General appearance: Present: A&O X 3 (He appears be at his baseline and alert and awake and knew me. He thought today was Saturday instead of Saturday ), no acute distress - Head Head exam: Present: atraumatic - Eye Eye exam: Present: EOMI. Absent: scleral icterus - ENT ENT exam: Present: mucous membranes moist (Patient has had IV rehydration), normal oropharynx, TM's normal bilaterally - Neck Neck exam general surgery: Absent: nuchal rigidity - Respiratory Respiratory exam: Present: CTAB - Cardiovascular Cardiovascular exam: Present: RRR, +S1, +S2, systolic murmur (2/6 systolic murmur) - GI/Abdominal GI/Abdominal exam: Present: hyperactive bowel sounds, soft, no peritoneal signs. Absent: hepatomegaly, mass, tenderness - Extremities Exam Extremities exam: Absent: calf tenderness, pedal edema, tenderness - Neurological Exam Neurological exam: Present: alert, oriented X3 Additional comments: Patient is weakness in the left lower extremity at the foot with decreased dorsiflexion and plantar flexion with foot drop chronically - Skin Additional comments: He is a thick pad dressing in is midline spine per wound clinic for his decubitus. He has a dressing in the right forearm from his skin tear. Internal Med - H&P Results - Labs CBC & Chem 7: 12/09/17 05:15 12/09/17 05:15 Labs: Short CBC 12/09/17 Range/Units 05:15 WBC 6.5 (4.3-11.1) K/mcL Hgb 11.4 L D (12.9-16.9) g/dL Hct 33.3 L (37.5-50.1) % Plt Count 154 (140-400) K/mcL Neutrophils # 3.3 (1.6-8.9) K/mcL BMP 12/09/17 05:15 Sodium 132 L Potassium 3.2 L Chloride 99 Carbon Dioxide 23 BUN 53 H Creatinine 1.57 H Glucose 98 Calcium 8.8 Labs have been reviewed. Hemoglobin dropped a bit after rehydration. He now has hyponatremia hypokalemia. His creatinine is worse than baseline with acute kidney injury.
[2017-12-09] MEDS ORDERED: Furosemide 40 MG TABLET PO SCH (09:00)
[2017-12-09] MEDS ORDERED: Magnesium Oxide 400 MG TABLET PO SCH (09:00)
[2017-12-09] MEDS: Aspirin 81 MG TAB.CHEW PO SCH (10:05)
[2017-12-09] MEDS: 0.9 % Sodium Chloride w KCl 20 MEQ/1,000 ML MLS IVC SCH ×2 (10:05→18:25)
[2017-12-09] MEDS: Ranolazine 500 MG TAB.ER.12H PO SCH ×2 (10:06→20:00)
[2017-12-09] MEDS: Mirtazapine 15 MG TABLET PO SCH (20:00)
--- NOTE | 2017-12-09 20:46 | Event Note ---
Date of Encounter: 12/09/17 Time of Encounter: 20:44 I reevaluated patient this evening. He is feeling much better. He is taking a regular diet. His stooling has dropped off significantly. His abdomen is soft and nontender and has normal bowel sounds. He looks alert and appropriate. He has really not been out of bed yet and is still quite weak. C. difficile was negative so we will discontinue the metronidazole
[2017-12-10] MEDS: 0.9 % Sodium Chloride w KCl 20 MEQ/1,000 ML MLS IVC SCH ×2 (02:31→10:02)
[2017-12-10] MEDS: *HR* Enoxaparin 40 MG/0.4 ML SYRINGE SQ SCH (04:52)
[2017-12-10 05:44] LABS: Basophils % 0.3 %; Eosinophils # 0.1 K/mcL (0.0-0.6); Eosinophils % 2.6 %; Hematocrit 29.1 % (37.5-50.1); Immature Granulocytes % 0.3 % (0-4); Lymphocytes % 29.9 %; Mean Corpuscular HGB Conc 33.7 g/dL (31.6-35.5); Mean Corpuscular Volume 103.9 fL (83.0-100.0); Mean Platelet Volume 11.1 fL (9.4-12.4); Monocytes # 0.5 K/mcL (0.0-1.3); Monocytes % 12.8 %; Neutrophils # 2.1 K/mcL (1.6-8.9); Platelet Count 123 K/mcL (140-400); Red Cell Distribution Width 14.2 % (11.5-14.5); Segmented Neutrophils % 54.1 %
[2017-12-10 05:46] LABS: Lymphocytes # 1.1 K/mcL (0.6-4.6)
[2017-12-10 05:47] LABS: Hemoglobin 9.8 g/dL (12.9-16.9)
[2017-12-10 06:23] LABS: BUN/Creatinine Ratio 28 (6-26); Blood Urea Nitrogen 36 mg/dL (8-23); Calcium 8.4 mg/dL (8.6-10.3); Carbon Dioxide 21 mEq/L (23-29); Chloride 109 mEq/L (98-107); Glucose 89 mg/dL (70-105); Osmolality,Calculated 286 (280-300); Potassium 4.6 mEq/L (3.5-5.1); Sodium 134 mEq/L (136-145); eGFR For Non-African Americans 53 (> 60)
[2017-12-10] MEDS: Ranolazine 500 MG TAB.ER.12H PO SCH ×2 (08:16→20:27)
[2017-12-10] MEDS: Aspirin 81 MG TAB.CHEW PO SCH (08:16)
[2017-12-10] MEDS ORDERED: 0.9 % Sodium Chloride w KCl 20 MEQ/1,000 ML MLS IVC SCH (11:15)
--- NOTE | 2017-12-10 13:25 | Internal Med Progress Note ---
<Lauryn Potter - Last Filed: 12/10/17 13:21> Date of Encounter: 12/10/17 Time of Encounter: 13:21 - Assessment and plan (1) Diarrhea Current Visit: Yes Status: Acute Assessment and plan: Improving. Last episode of diarrhea was last evening. Qualifiers: Diarrhea type: presumed infectious Qualified Code(s): R19.7 - Diarrhea, unspecified (2) Frequent falls Current Visit: Yes Status: Acute Assessment and plan: Lives at home alone. Has had multiple falls at home recently. PT and OT to eval and treat will follow progress. (3) Heme positive stool Current Visit: Yes Status: Acute Assessment and plan: Hemoglobin stable at 9.8. Will monitor labs. No active sign of bleeding. Asymptomatic (4) Multiple skin tears Current Visit: Yes Status: Acute Assessment and plan: Wound consulted to evaluate. (5) Dehydration with hyponatremia Current Visit: Yes Status: Acute Assessment and plan: Improving. Receiving IV antibiotics at this time. Potassium 4.6 and sodium is now 134. Encourage PO fluids. - Subjective Interval history: Seen today after collaborating with Dr. Mcgarry. Patient here after deconditioning after having several episodes of diarrhea. Lives at home alone and has had multiple recent falls. States last episode of diarrhea was last night. States feeling better but just feels weak. PT and OT order to eval and treat. Denies abd pain, fever, chills, nausea, vomiting or diarrhea at this time. Denies vertigo, shortness of breath or chest pain. Stool was negative for c-diff. IV fluids infusing. Did eat well for breakfast and lunch. Encouraging PO fluids. denies any other needs or complaints at this time. - Constitutional Vitals: Temp Pulse Resp BP Pulse Ox 98.1 F 77 18 123/59 94 12/10/17 07:07 12/10/17 07:07 12/10/17 07:07 12/10/17 07:07 12/10/17 07:07 General appearance: Present: cooperative, A&O X 3 (He appears be at his baseline and alert and awake and knew me. He thought today was Saturday instead of Saturday ), pleasant, no acute distress, answers questions appropriately - Head Head exam: Present: atraumatic, normocephalic - Eye Eye exam: Present: PERRL, conjuntiva pink, sclera anicteric Pupils: Present: PERRL - Neck Neck exam general surgery: Present: supple, trachea midline. Absent: lymphadenopathy - Respiratory Respiratory exam: Present: CTAB. Absent: accessory muscle use, rales, rhonchi, wheezes - Cardiovascular Cardiovascular exam: Present: RRR, +S1, +S2, systolic murmur. Absent: diastolic murmur, gallop, rubs - GI/Abdominal GI/Abdominal exam: Present: normal bowel sounds, soft, no peritoneal signs. Absent: distended, tenderness - Extremities Exam Extremities exam: Present: warm, radial pulses palpable and symmetrical. Absent : calf tenderness, cyanotic, pedal edema - Neurological Exam Neurological exam: Present: CN II-XII intact, oriented X3, no focal deficits. Absent: pronater drift, facial droop, speech deficit - Skin Skin exam: Present: dry, intact Additional comments: Dressing to right forearm and midline spine. Internal Medicine: Result - Labs CBC & Chem 7: 12/10/17 05:25 12/10/17 05:25 Labs: Short CBC 12/10/17 Range/Units 05:25 WBC 3.8 L (4.3-11.1) K/mcL Hgb 9.8 L D (12.9-16.9) g/dL Hct 29.1 L (37.5-50.1) % Plt Count 123 L (140-400) K/mcL Neutrophils # 2.1 (1.6-8.9) K/mcL BMP 12/10/17 05:25 Sodium 134 L Potassium 4.6 Chloride 109 H Carbon Dioxide 21 L BUN 36 H Creatinine 1.29 Glucose 89 Calcium 8.4 L - VTE Documentation of Mechanical Device: Graduated compression elastic hosiery Consult Discharge Plan - Plan Referrals: Denzel Mcgarry MD [Primary Care Provider] - (Follow-up house calls after patient discharged from [facility]) <Denzel Mcgarry - Last Filed: 12/12/17 15:28> Date of Encounter: 12/12/17 - Assessment and plan (1) Diarrhea Current Visit: Yes Status: Acute Qualifiers: Diarrhea type: presumed infectious Qualified Code(s): R19.7 - Diarrhea, unspecified (2) Dehydration with hyponatremia Current Visit: Yes Status: Resolved (3) Heme positive stool Current Visit: Yes Status: Acute (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 (5) Multiple skin tears Current Visit: Yes Status: Acute (6) Hyponatremia Current Visit: Yes Status: Resolved (7) Acute kidney injury Current Visit: Yes Status: Resolved (8) Frequent falls Current Visit: Yes Status: Acute (9) 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 (10) Hypokalemia Current Visit: Yes Status: Resolved (11) DVT prophylaxis Current Visit: Yes Status: Inactive - Constitutional Vitals: Temp Pulse Resp BP Pulse Ox 98.0 F 60 16 137/76 96 12/12/17 07:24 12/12/17 07:24 12/12/17 07:24 12/12/17 07:24 12/12/17 07:24 Internal Medicine: Result - Labs CBC & Chem 7: 12/12/17 05:25 12/12/17 05:25 Labs: Short CBC 12/12/17 Range/Units 05:25 WBC 6.5 (4.3-11.1) K/mcL Hgb 9.8 L (12.9-16.9) g/dL Hct 29.1 L (37.5-50.1) % Plt Count 143 (140-400) K/mcL Neutrophils # 3.8 (1.6-8.9) K/mcL BMP 12/12/17 05:25 Sodium 135 L Potassium 4.5 Chloride 107 Carbon Dioxide 23 BUN 22 Creatinine 1.24 Glucose 87 Calcium 8.6
[2017-12-10] MEDS: Mirtazapine 15 MG TABLET PO SCH (20:27)
[2017-12-11] MEDS: *HR* Enoxaparin 40 MG/0.4 ML SYRINGE SQ SCH (05:46)
[2017-12-11 05:48] LABS: Basophils % 0.1 %; Eosinophils # 0.1 K/mcL (0.0-0.6); Eosinophils % 1.8 %; Hematocrit 27.9 % (37.5-50.1); Hemoglobin 9.2 g/dL (12.9-16.9); Immature Granulocytes % 0.6 % (0-4); Lymphocytes # 1.5 K/mcL (0.6-4.6); Lymphocytes % 21.7 %; Mean Corpuscular Hemoglobin 34.6 pg (28.0-33.3); Mean Corpuscular Volume 104.9 fL (83.0-100.0); Monocytes # 0.7 K/mcL (0.0-1.3); Monocytes % 10.5 %; Neutrophils # 4.4 K/mcL (1.6-8.9); Platelet Count 124 K/mcL (140-400); Red Blood Count 2.66 M/mcL (4.19-5.50); Red Cell Distribution Width 14.6 % (11.5-14.5); Segmented Neutrophils % 65.3 %
[2017-12-11 06:04] LABS: BUN/Creatinine Ratio 21 (6-26); Blood Urea Nitrogen 24 mg/dL (8-23); Calcium 8.4 mg/dL (8.6-10.3); Carbon Dioxide 21 mEq/L (23-29); Chloride 110 mEq/L (98-107); Glucose 95 mg/dL (70-105); Osmolality,Calculated 282 (280-300); Potassium 4.8 mEq/L (3.5-5.1); Sodium 134 mEq/L (136-145); eGFR For Non-African Americans 60 (> 60)
[2017-12-11 08:28] LABS: % Iron Saturation 12 % (20-55); Iron 25 mcg/dL (65-175); Transferrin 146 mg/dL (203-362)
[2017-12-11] MEDS: Aspirin 81 MG TAB.CHEW PO SCH (08:46)
[2017-12-11] MEDS: Ranolazine 500 MG TAB.ER.12H PO SCH ×2 (08:46→20:13)
[2017-12-11 08:55] LABS: Vitamin B12 656 pg/mL (250-1100)
[2017-12-11 08:57] LABS: Folate > 22.3 ng/mL (3.0-16.0)
--- NOTE | 2017-12-11 10:46 | Internal Med Progress Note ---
Date of Encounter: 12/11/17 Time of Encounter: 10:46 - Assessment and plan (1) Diarrhea Current Visit: Yes Status: Acute Assessment and plan: The diarrhea is now resolved. Consideration for oysterman medication such as Asacol for possible empiric treatment in case he has colitis which seems to run in the family. He is not a good candidate for upper lower endoscopies at this time. Family wishes to treat empirically rather than be aggressive with procedures. Qualifiers: Diarrhea type: presumed infectious Qualified Code(s): R19.7 - Diarrhea, unspecified (2) Dehydration with hyponatremia Current Visit: Yes Status: Resolved Assessment and plan: Sodium improved. Dehydration resolved. His eating well. (3) Heme positive stool Current Visit: Yes Status: Acute Assessment and plan: Discussed as above. 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 We will resume his Lasix now that his dehydration is resolved. (5) Multiple skin tears Current Visit: Yes Status: Acute (6) Hyponatremia Current Visit: Yes Status: Acute Assessment and plan: Improved (7) Acute kidney injury Current Visit: Yes Status: Resolved Assessment and plan: Acute kidney injury resolved. Creatinine normal for his age. (8) Frequent falls Current Visit: Yes Status: Acute Assessment and plan: PT and OT evaluation. He has generalized weakness and falling episodes. He needs ongoing therapies before going home. We are trying to arrange for assisted placement for physical therapy. 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 He has had no bowel movement for about 24 hours or so. He is having no cardiac or respiratory symptoms. He has generalized weakness. He had OT evaluation yesterday, I was told that he declined PT because he was too tired. He disputes that. - Constitutional Vitals: Temp Pulse Resp BP Pulse Ox 98.4 F 69 17 128/66 93 12/11/17 07:35 12/11/17 07:35 12/11/17 07:35 12/11/17 07:35 12/11/17 07:35 General appearance: Present: cooperative, A&O X 3 (He appears be at his baseline and alert and awake and knew me. He thought today was Saturday instead of Saturday ), pleasant, no acute distress, answers questions appropriately - Respiratory Respiratory exam: Present: CTAB - Cardiovascular Cardiovascular exam: Present: RRR, +S1, +S2, systolic murmur (2/6 systolic murmur) - Extremities Exam Extremities exam: Absent: calf tenderness, pedal edema Additional comments: He has protective dressing over skin tear on right forearm. Internal Medicine: Result - Labs CBC & Chem 7: 12/11/17 05:35 12/11/17 05:35 Labs: Short CBC 12/11/17 Range/Units 05:35 WBC 6.8 D (4.3-11.1) K/mcL Hgb 9.2 L (12.9-16.9) g/dL Hct 27.9 L (37.5-50.1) % Plt Count 124 L (140-400) K/mcL Neutrophils # 4.4 (1.6-8.9) K/mcL BMP 12/11/17 05:35 Sodium 134 L Potassium 4.8 Chloride 110 H Carbon Dioxide 21 L BUN 24 H Creatinine 1.16 Glucose 95 Calcium 8.4 L Hemoglobin is a bit lower but otherwise stable. Renal function normal. Potassium normal. - VTE Documentation of Mechanical Device: Graduated compression elastic hosiery Consult Discharge Plan - Plan Referrals: Denzel Mcgarry MD [Primary Care Provider] -
--- NOTE | 2017-12-11 11:02 | Physician Discharge Referral ---
ExtendedCare Referral Info Transfer To: [facility], [facility] Care Provider in Charge after Transfer: Other () Institutional Level of Care: Skilled - Diagnosis (1) Diarrhea Status: Acute (2) Dehydration with hyponatremia Status: Resolved (3) Heme positive stool Status: Acute (4) Hx of CABG Status: Chronic (5) Multiple skin tears Status: Acute (6) Hyponatremia Status: Acute (7) Acute kidney injury Status: Resolved (8) Frequent falls Status: Acute (9) Status post transcatheter aortic valve replacement Status: Chronic (10) Hypokalemia Status: Resolved (11) DVT prophylaxis Status: Acute - Transfer Medications Home Medications: Ferrous Sulfate [Iron] 325 mg PO DAILY 09/16/15 [History] Ranolazine [Ranexa] 500 mg PO BID 09/16/15 [History] Acetaminophen [Tylenol] 975 mg PO Q8HR PRN #0 tablet 10/11/15 [Rx] Mirtazapine [Remeron] 15 mg PO HS 06/05/17 [History] Acetaminophen [Tylenol] 500 mg PO Q4HR PRN tablet 06/13/17 [Rx] Aspirin 81 mg PO DAILY tab.chew 06/13/17 [Rx] Carvedilol [Coreg] 3.125 mg PO BIDWM tablet 06/13/17 [Rx] Furosemide [Lasix] 40 mg PO DAILY tablet 06/13/17 [Rx] Potassium Chloride [K-Tab ER] 20 meq PO DAILY #30 tablet.er 06/13/17 [Rx] Magnesium Oxide [Magnesium] 400 mg PO DAILY 11/25/17 [History] Atorvastatin Calcium [Lipitor] 20 mg PO 12/06/17 [History] Allergies/Adverse Reactions: 3 Allergy/AdvReac Type Severity Reaction Status Date / Time Penicillins Allergy See Verified 09/23/15 13:23 Comments hydrocodone AdvReac Nausea Verified 09/23/15 22:04 - Respiratory Orders Smoking Cessation: Smoking cessation has been advised. For more information, call the [place] Tobacco Quit Line at 3-012-OFOJ-NOW. - Ancillary Orders May use pressure relief devices daily prn, May go on JONI w/family/respon green party w /meds at nurse discretion PRN - Advance Directives Living Will: Yes Power of Lease Administration Supervisor: Yes Code Status: Full Code - Mobility Orders Ambulate - Rehabiliation Orders Rehab Potential: Good Rehab Orders: Evaluation for Physical Therapy, Evaluation for Occupational Therapy - Treatments Skin tear care topically daily PRN per policy - Diet Orders No Added Salt (KAYLEN), Cardiac CERTIFICATION: I certify that the transfer of the above named patient to an Extended Care Facility is necessary for the continuing treatment of the diagnosis listed. The above information is true and accurate reflection of patient's current condition. Confidential - Redisclosure prohibited without a patient's written consent.
[2017-12-11] MEDS: Furosemide 40 MG TABLET PO SCH (11:35)
[2017-12-11] MEDS: Mirtazapine 15 MG TABLET PO SCH (20:13)
[2017-12-12] MEDS: *HR* Enoxaparin 40 MG/0.4 ML SYRINGE SQ SCH (05:30)
[2017-12-12 05:37] LABS: Basophils % 0.2 %; Eosinophils # 0.2 K/mcL (0.0-0.6); Eosinophils % 2.6 %; Hematocrit 29.1 % (37.5-50.1); Hemoglobin 9.8 g/dL (12.9-16.9); Immature Granulocytes % 0.6 % (0-4); Lymphocytes # 1.8 K/mcL (0.6-4.6); Lymphocytes % 27.8 %; Mean Corpuscular HGB Conc 33.7 g/dL (31.6-35.5); Mean Corpuscular Hemoglobin 34.5 pg (28.0-33.3); Mean Corpuscular Volume 102.5 fL (83.0-100.0); Mean Platelet Volume 11.2 fL (9.4-12.4); Monocytes # 0.7 K/mcL (0.0-1.3); Neutrophils # 3.8 K/mcL (1.6-8.9); Platelet Count 143 K/mcL (140-400); Red Blood Count 2.84 M/mcL (4.19-5.50); Red Cell Distribution Width 14.4 % (11.5-14.5); Segmented Neutrophils % 57.8 %
[2017-12-12 05:55] LABS: BUN/Creatinine Ratio 18 (6-26); Blood Urea Nitrogen 22 mg/dL (8-23); Calcium 8.6 mg/dL (8.6-10.3); Carbon Dioxide 23 mEq/L (23-29); Chloride 107 mEq/L (98-107); Glucose 87 mg/dL (70-105); Osmolality,Calculated 283 (280-300); Potassium 4.5 mEq/L (3.5-5.1); Sodium 135 mEq/L (136-145); eGFR For Non-African Americans 56 (> 60)
[2017-12-12 07:28] VITALS: BP 137/76
[2017-12-12] MEDS: Ranolazine 500 MG TAB.ER.12H PO SCH (09:44)
[2017-12-12] MEDS: Furosemide 40 MG TABLET PO SCH (09:44)
[2017-12-12] MEDS: Aspirin 81 MG TAB.CHEW PO SCH (09:44)
--- NOTE | 2017-12-12 12:31 | Discharge Summary ---
- NOTES TO OUTPATIENT PROVIDER Notes to Outpatient Provider: #1. Admission date 12/08/17. Discharge date . #2. Hemoglobin dropped after rehydration and is now stabilized at 9.8 g. Chronically heme positive stool, no bright red blood per rectum or melena. Has iron deficiency anemia. Currently not a great candidate for upper and lower endoscopies unless has brisk bleed. Previously was anticoagulated, has not had Xarelto in a few months. He is on baby aspirin. #3. Is very physically deconditioned. He is getting stronger and participating with PT and OT but needs continuation of therapies before it is safe to send him home Date of Encounter: 12/12/17 Time of Encounter: 14:57 - Discharge Diagnosis (1) Diarrhea Priority: Secondary Status: Acute Comments: He multiple episodes of diarrhea. He was negative for C. difficile. It was heme positive, but is also had heme positive stool on and off for a while. No melena or hematochezia. No fevers or chills. No leukocytosis. He was given metronidazole empirically until the C. difficile result came back as negative and it was discontinued. Diarrhea has stopped and he is starting to have small amount of formed stool. We presume it was from an infectious etiology. He was taking magnesium oxide and that was held by the family at home prior to admission. We will continue to hold it. Qualifiers: Diarrhea type: presumed infectious Qualified Code(s): R19.7 - Diarrhea, unspecified (2) Dehydration with hyponatremia Priority: Primary Status: Resolved Comments: Patient was admitted with multiple episodes of diarrhea and dehydration with acute kidney injury, concentrated urine, weakness, hemoconcentrated hemoglobin, hyponatremia and hypokalemia. On admission he continues with multiple stools. C. difficile was negative. Heme positive stool chronically. No blood per rectum or melena. He was empirically started on metronidazole until his C. difficile result returned as negative. Suddenly his stools stopped. He is now starting to have a very small amount of formed stool. His appetite now has improved dramatically. He no longer needs the IV fluids. He had was given saline and potassium intravenously until his electrolytes were normalizing. (3) Heme positive stool Priority: Secondary Status: Acute Comments: Recurring heme positive stool without melena or hematochezia. His hemoglobin did drop on admission with rehydration. Suspected hemoconcentration and now chronic iron deficiency anemia in the 9-10 g of hemoglobin range. We will increase his iron to at least twice a day. He is not a great candidate for upper and lower endoscopy at this time. I spoken to the daughter regarding indications for endoscopy and she would prefer that he not have the procedure but she would like her to be on something in case she has colitis is apparently runs in the family. Consideration for Asacol? Patient was started on PPI in case he was having upper GI bleed. (4) Hx of CABG Priority: Secondary Status: Chronic Comments: History of CAD and CABG many years ago. He has had no angina or CHF. (5) Multiple skin tears Priority: Secondary Status: Acute Comments: He has a skin tear in her right forearm. He has a decubitus in the midlines lower spine taken care of by wound clinic. (6) Hyponatremia Priority: Secondary Status: Resolved (7) Acute kidney injury Priority: Secondary Status: Resolved Comments: When he was admitted he had acute kidney injury with elevated creatinine. His creatinine is now normal after IV fluids. Likely it was due to dehydration secondary to poor by mouth intake and his diarrhea.. (8) Frequent falls Priority: Secondary Status: Acute Comments: Patient needs to have frequent falls at home. The typical pattern is that he gets discharged from the care home, does well at home for about 2 weeks and then becomes sedentary, loses his strength, loses his balance frequently and has falling episodes. I have stressed to the family that he should have 24- hour ordinary 24-hour care. In the meantime he will be readmitted to [facility] for ongoing therapy for his deconditioning and balance problems. (9) Status post transcatheter aortic valve replacement Priority: Secondary Status: Chronic Comments: no angina or CHF. (10) Hypokalemia Priority: Secondary Status: Resolved (11) DVT prophylaxis Priority: Secondary Status: Inactive Hospital course: Mr. Cortes is a 82 year old male admitted with unrelenting diarrhea with secondary dehydration, hyponatremia, hypokalemia, acute kidney injury and required IV hydration. Please see the diagnoses above. He is now eating well, his pain with therapies, started have a small amount of formed stool, urine is less concentrated now the patient is medically stable. He needs ongoing therapies before trying to resume his care at home. Discharge discussed with: other ([facility]) - Time Spent with Patient Total time spent providing and/or coordinating discharge services: - Discharge Medications Home Medications: Ranolazine [Ranexa] 500 mg PO BID 09/16/15 [History] Mirtazapine [Remeron] 15 mg PO HS 06/05/17 [History] Acetaminophen [Tylenol] 500 mg PO Q4HR PRN tablet 06/13/17 [Rx] Aspirin 81 mg PO DAILY tab.chew 06/13/17 [Rx] Carvedilol [Coreg] 3.125 mg PO BIDWM tablet 06/13/17 [Rx] Furosemide [Lasix] 40 mg PO DAILY tablet 06/13/17 [Rx] Potassium Chloride [K-Tab ER] 20 meq PO DAILY #30 tablet.er 06/13/17 [Rx] Atorvastatin Calcium [Lipitor] 20 mg PO 12/06/17 [History] Ferrous Sulfate [Iron] 325 mg PO BID #0 12/12/17 [Rx] Omeprazole [PriLOSEC] 20 mg PO DAILY@0630 capsule.dr 12/12/17 [Rx] Allergies/Adverse Reactions: 3 Allergy/AdvReac Type Severity Reaction Status Date / Time Penicillins Allergy See Verified 09/23/15 13:23 Comments hydrocodone AdvReac Nausea Verified 09/23/15 22:04 Date of admission: 12/08/17 22:08 Primary care physician: Denzel Mcgarry MD Consults: 12/09/17 07:23 Consult to Wound Care [CONS] Routine Reason for Consult: Continue treatment for multiple skin tears and decubiti Call Completed: No 12/10/17 11:11 Consult to Occupational Therapy [CONS] Routine Comment: Evaluate, develop and implement POC Reason for Consult: Weakness, frequent falls, difficulties with ADLs. Please evaluate and treat Does patient have active BEDREST order?: No Is patient medically & hemodynamically stable?: Yes Patient assessed for mobility or mobilized this visit?: No Consult to Physical Therapy [CONS] Routine Comment: Evaluate, develop and implement POC Reason for Consult: Weakness, frequent falls, troubles with ADLs. Please evaluate and treat Does patient have active BEDREST order?: No Is patient medically & hemodynamically stable?: Yes Patient assessed for mobility or mobilized this visit?: No Discharging clinician: Denzel Mcgarry Anticipated date of discharge: 12/12/17 - Constitutional Vitals: Temp Pulse Resp BP Pulse Ox 98.0 F 60 16 137/76 96 12/12/17 07:24 12/12/17 07:24 12/12/17 07:24 12/12/17 07:24 12/12/17 07:24 General appearance: Present: cooperative, A&O X 3 (He appears be at his baseline and alert and awake and knew me. He thought today was Saturday instead of Saturday ), pleasant, no acute distress, answers questions appropriately - Respiratory Respiratory exam: Present: CTAB - Cardiovascular Cardiovascular exam: Present: RRR, +S1, +S2, systolic murmur (2/6 systolic murmur heard best at the left sternal border) - GI/Abdominal GI/Abdominal exam: Present: hyperactive bowel sounds, soft, no peritoneal signs. Absent: hepatomegaly, mass, tenderness - Extremities Exam Extremities exam: Absent: calf tenderness, pedal edema, tenderness - Back Exam Back exam: Absent: vertebral tenderness Additional comments: He has an Allevyn in the mid to lower thoracic spine where he has a decubitus being treated by wound clinic. He has poor posture as well as kyphoscoliosis - Neurological Exam Neurological exam: Present: oriented X3 Additional comments: He has chronic left foot drop. He is able to move all extremities. His cognitive function is intact for social conversation. However, he needs lots of cueing and redirecting during therapies and sequential activities - Skin Additional comments: He has an Allevyn in the midline spine lower thoracic region from a decubitus. He has a sterile dressing in the right forearm from a skin tear. He has multiple ecchymotic areas. He has no sacral decubitus but has mild redness present. - Patient Status Disposition: Transfer SNF Condition: Good Functional capacity at discharge: uses cane/walker Overall status at discharge: patient is not back to baseline - Discharge Instructions Follow Up With: Denzel Mcgarry MD [Primary Care Provider] - (Follow-up house calls after patient discharged from [facility]) - Diet and Activity Activity: as per physical therapy Diet: low fat, low cholesterol, low salt diet - VTE Documentation of Mechanical Device: Graduated compression elastic hosiery
== END 2017-12-12 16:19 | DRG 641 ==
LOC: INPGRE 18:13 → EMEROOGRE 18:13 → OBSVTOIN 22:08 → INPGRE 22:38
PROVIDERS: ADMIT Family Medicine; ATTEND Family Medicine

== ENCOUNTER 2019-10-18 14:42 | Observation (INO) ==
[2019-10-18 15:36] LABS: Basophils % 0.4 %; Eosinophils # 0.1 K/mcL (0.0-0.6); Eosinophils % 1.7 %; Hematocrit 34.2 % (37.5-50.1); Hemoglobin 11.4 g/dL (12.9-16.9); Immature Granulocytes % 0.2 % (0-4); Lymphocytes # 1.6 K/mcL (0.6-4.6); Lymphocytes % 34.8 %; Mean Corpuscular HGB Conc 33.3 g/dL (31.6-35.5); Mean Corpuscular Hemoglobin 33.7 pg (28.0-33.3); Mean Corpuscular Volume 101.2 fL (83.0-100.0); Mean Platelet Volume 12.7 fL (9.4-12.4); Monocytes # 0.4 K/mcL (0.0-1.3); Monocytes % 9.4 %; Neutrophils # 2.5 K/mcL (1.6-8.9); Platelet Count 149 K/mcL (140-400); Red Blood Count 3.38 M/mcL (4.19-5.50); Red Cell Distribution Width 14.6 % (11.5-14.5); Segmented Neutrophils % 53.5 %; White Blood Count 4.7 K/mcL (4.3-11.1)
[2019-10-18 15:40] LABS: INR 1.1; Prothrombin Time 12.1 Seconds (9.4-12.1)
[2019-10-18 15:43] LABS: Activated Partial Thrombo Time 41.2 Seconds (26.0-36.0)
[2019-10-18 15:51] LABS: Calcium 9.4 mg/dL (8.6-10.3); Potassium 4.5 mEq/L (3.5-5.1)
[2019-10-18 15:52] LABS: Troponin I 0.03 ng/mL (< 0.04)
[2019-10-18 16:13] LABS: Bilirubin,Urine Negative (Negative); Blood,Urine Negative (Negative); Clarity,Urine Clear (Clear); Color,Urine Yellow (Yellow); Glucose,Urine (UA) Normal (Normal); Ketones,Urine Negative (Negative); Leukocyte Esterase,Urine Negative (Negative); Nitrite,Urine Negative (Negative); PH,Urine 6.5 pH Units (5.0-8.0); Protein,Urine Negative (Neg-Trace); Specific Gravity,Urine 1.015 (1.010-1.025)
[2019-10-18] MEDS ORDERED: Naloxone 0.4 MG/ML INJ IVP PRN (19:20)
[2019-10-18] MEDS: 0.9 % Sodium Chloride 1,000 ML IVC SCH (21:02)
[2019-10-18] MEDS: Mirtazapine 15 MG TABLET PO SCH (21:02)
[2019-10-18] MEDS: Ranolazine 500 MG TAB.ER.12H PO SCH (21:02)
[2019-10-19] MEDS: 0.9 % Sodium Chloride 1,000 ML IVC SCH (06:33)
[2019-10-19] MEDS: carvediloL 6.25 MG TABLET PO SCH ×2 (07:55→16:16)
[2019-10-19] MEDS: Ranolazine 500 MG TAB.ER.12H PO SCH ×2 (07:56→19:40)
[2019-10-19] MEDS: Furosemide 20 MG TABLET PO SCH (07:56)
[2019-10-19] MEDS: Aspirin Enteric Coated 81 MG Tablet PO SCH (07:56)
[2019-10-19] MEDS: Mirtazapine 15 MG TABLET PO SCH (19:40)
[2019-10-20 07:22] VITALS: BP 140/80
[2019-10-20] MEDS: Ranolazine 500 MG TAB.ER.12H PO SCH (08:04)
[2019-10-20] MEDS: Aspirin Enteric Coated 81 MG Tablet PO SCH (08:04)
[2019-10-20] MEDS: carvediloL 6.25 MG TABLET PO SCH (08:04)
[2019-10-20] MEDS: Furosemide 20 MG TABLET PO SCH (08:04)
== END 2019-10-20 10:52 | disposition short-term general hospital (02) ==
LOC: EMEROOGRE 14:42 → INPGRE 14:42
PROVIDERS: ADMIT Family Medicine; ATTEND Family Medicine